=== PATIENT | female | born 1975 | race Caucasian/White ===

== ENCOUNTER → 2017-11-14 11:17 | Outpatient (CLI) | payer OTHER, SELFPAY ==
[2017-11-14 11:24] LABS: Bacteria Urine None Seen; WBC Urine None Seen (0-5/HPF)
[2017-11-14 11:57] LABS: Hematocrit 44.7 % (36-46); Hemoglobin 15.2 g/dL (12.0-16.0); Mean Corpuscular Hemoglobin 31.4 PG (26-34); Mean Corpuscular Volume 92.3 fL (80-100); Platelet Count 226 X10^3/uL (150-400); Red Blood Cell Count 4.84 X10^6/uL (4.0-5.2); Red Cell Distribution Width 12.9 % (11.6-14.8); White Blood Cell Count 5.1 X10^3/uL (4.5-11.0)
[2017-11-14 12:03] LABS: Appearance Urine UA CLEAR; Bilirubin Urine UA NEGATIVE (NEGATIVE); Color Urine UA YELLOW; Glucose Urine UA NEGATIVE (Normal); Ketones Urine UA NEGATIVE (NEGATIVE); Leukocyte Esterase Urine UA NEGATIVE (NEGATIVE); Nitrite Urine UA Negative (Negative); Occult Blood Urine UA 3+ (Negative); Protein Urine UA NEGATIVE (Negative); Specific Gravity Urine UA 1.015 (1.000-1.035); Urobilinogen Urine UA 0.2 E.U./dL (0.2)
[2017-11-14 12:06] LABS: Pregnancy Test Urine Negative (Negative)
[2017-11-14 12:23] LABS: Alanine Aminotransferase 29 IU/L (9-52); Albumin 4.4 g/dL (3.5-5.0); Albumin Globulin Ratio 1.4 (1.0-2.8); Alkaline Phosphatase 58 U/L (38-126); Aspartate Aminotransferase 24 IU/L (14-36); BUN Creatinine Ratio 17.5 (6-22); Bilirubin Total 0.7 mg/dL (0.2-1.3); Blood Urea Nitrogen 14 mg/dL (7-17); Calcium 9.7 mg/dL (8.4-10.2); Carbon Dioxide 24 mmol/L (22-32); Chloride 103 mmol/L (98-107); Cholesterol 233 mg/dL (140-199); Estimated Glomerular Filt Rate > 60.0 mL/min (>60); Globulin 3.1 g/dL (1.7-4.1); Glucose 94 mg/dL (70-100); HDL Cholesterol 58 mg/dL (40-60); HEMOLYSIS < 15 (0-50); LDL Cholesterol Calculated 137 mg/dL (<100); Potassium 5.2 mmol/L (3.4-5.1); Sodium 138 mmol/L (137-145); Total Protein 7.5 g/dL (6.3-8.2); Triglycerides 190 mg/dL (35-150)
[2017-11-14 12:25] LABS: Culture Indicated Urine Cult Not Indicated; RBC Urine 1-5/HPF (0-5/HPF)
[2017-11-14 12:41] LABS: Hemoglobin A1C% w Est Avg Glu 5.2 % (4.0-6.0)
[2017-11-14 12:54] LABS: TSH w/ Reflex to FT4 3.17 uIU/mL (0.47-4.68)
[2017-11-14 14:16] LABS: Neutrophils Absolute Manual 2550 /uL (3000-5900); Total Cells Counted 100
== END ==
PROVIDERS: Family Provider Family Medicine; PCP Family Medicine; Visit Provider Nurse Practitioner Family
DX: Z01.419 Encounter for gynecological examination (general) (routine) without abnormal findings (principal)
CPT/HCPCS: 36415; 80053; 80061; 81001; 81025; 83036; 84443; 85025

== ENCOUNTER → 2018-02-24 08:12 | Outpatient (CLI) | payer OTHER, SELFPAY ==
[2018-02-24 09:58] LABS: Cholesterol 188 mg/dL (140-199); HDL Cholesterol 45 mg/dL (40-60); LDL Cholesterol Calculated 101 mg/dL (<100); Triglycerides 210 mg/dL (35-150)
== END ==
PROVIDERS: PCP Registered Nurse; Visit Provider Registered Nurse
DX: E78.2 Mixed hyperlipidemia (principal)
CPT/HCPCS: 36415; 80061

== ENCOUNTER → 2020-02-28 08:25 | Outpatient (CLI) | payer OTHER, SELFPAY ==
[2020-02-28 09:50] LABS: Add Manual Diff / Slide Review NO; Basophils Absolute Auto 0 /uL (0-100); Basophils Percent Auto 0.9 % (0-2); Eosinophils Absolute Auto 200 /uL (0-450); Eosinophils Percent Auto 3.5 % (2-4); Hematocrit 42.2 % (36-46); Hemoglobin 14.1 g/dL (12.0-16.0); Lymphocytes Absolute Auto 2000 /uL (1100-4500); Lymphocytes Percent Auto 44.6 % (25-40); Mean Corpuscular HGB Conc 33.5 % (30-36); Mean Corpuscular Volume 92.6 fL (80-100); Monocytes Absolute Auto 300 /uL (0-900); Monocytes Percent Auto 6.1 % (3-14); Neutrophils Absolute Auto 2100 /uL (1500-7000); Neutrophils Percent Auto 44.9 % (50-75); Platelet Count 199 X10^3/uL (150-400); Red Blood Cell Count 4.56 X10^6/uL (4.0-5.2); Red Cell Distribution Width 13.9 % (11.6-14.8); White Blood Cell Count 4.6 X10^3/uL (4.5-11.0)
[2020-02-28 10:34] LABS: Alanine Aminotransferase 18 IU/L (<35); Albumin 3.9 g/dL (3.5-5.0); Albumin Globulin Ratio 1.3 (1.0-2.8); Alkaline Phosphatase 51 U/L (38-126); Aspartate Aminotransferase 24 IU/L (14-36); BUN Creatinine Ratio 12.2 (6-22); Bilirubin Total 0.5 mg/dL (0.2-1.3); Blood Urea Nitrogen 10 mg/dL (7-17); Carbon Dioxide 26 mmol/L (22-32); Chloride 105 mmol/L (98-107); Cholesterol 189 mg/dL (140-199); Estimated Glomerular Filt Rate > 60.0 mL/min (>60); Glucose 85 mg/dL (70-100); HDL Cholesterol 60 mg/dL (40-60); HEMOLYSIS < 15 (0-50); LDL Cholesterol Calculated 109 mg/dL (<100); Potassium 4.6 mmol/L (3.4-5.1); Sodium 135 mmol/L (137-145); Total Protein 6.9 g/dL (6.3-8.2); Triglycerides 102 mg/dL (35-150)
[2020-02-28 10:35] LABS: Appearance Urine UA CLEAR; Bilirubin Urine UA NEGATIVE (NEGATIVE); Color Urine UA YELLOW; Glucose Urine UA NEGATIVE (Negative); Ketones Urine UA NEGATIVE (NEGATIVE); Leukocyte Esterase Urine UA NEGATIVE (NEGATIVE); Nitrite Urine UA NEGATIVE (Negative); Occult Blood Urine UA NEGATIVE (Negative); Protein Urine UA NEGATIVE (Negative); Urobilinogen Urine UA 0.2 E.U./dL (0.2)
== END ==
PROVIDERS: Family Provider Family Medicine; PCP Registered Nurse; Referring Provider Registered Nurse; Visit Provider Registered Nurse
DX: Z00.00 Encounter for general adult medical examination without abnormal findings (principal); E78.5 Hyperlipidemia, unspecified; Z30.40 Encounter for surveillance of contraceptives, unspecified
CPT/HCPCS: 36415; 80053; 80061; 81003; 85025

== ENCOUNTER → 2020-07-06 11:58 | Outpatient (CLI) | payer OTHER, SELFPAY ==
--- NOTE | 2020-07-06 12:00 | DI.RAD.S_ITS ---
PROCEDURE: XR SHOULDER RT MIN 2V INDICATIONS: neck injury, neck pain TECHNIQUE: 3 views of the shoulder were acquired. COMPARISON: None. FINDINGS: Bones: No acute fractures or dislocations. No suspicious bony lesions. Visualized ribs appear intact. Mild degenerative changes of the acromioclavicular joint. Coracoclavicular and acromioclavicular intervals are maintained. Soft tissues: No suspicious soft tissue calcifications. IMPRESSION: Right shoulder without acute fracture or dislocation. Mild acromioclavicular osteoarthrosis. Dictated by: Thanh Alford M.D. on 07/06/2020 at 14:30 Approved by: Thanh Alford M.D. on 07/06/2020 at 14:31
--- NOTE | 2020-07-06 12:00 | DI.RAD.S_ITS ---
PROCEDURE: XR CERVICAL SPINE 2V OR 3V INDICATIONS: neck injury, neck pain TECHNIQUE: 3 view(s) of the cervical spine were acquired. COMPARISON: None. FINDINGS: Bones: No fractures or dislocations to the T3 level. The lateral masses of C1 appear intact on the odontoid view. No suspicious bony lesions. Straightening of cervical lordosis which may be due to patient positioning and/or concurrent muscle spasms. There are degenerative endplate changes and endplate osteophyte formation seen from C4-5 through C7-T1. No significant disc space loss. Soft tissues: No prevertebral soft tissue swelling. IMPRESSION: Cervical spine without acute fracture or dislocation. Multilevel cervical spondylosis most pronounced from C4-5 through C7-T1. Straightening of cervical lordosis likely related to positioning and/or concurrent muscle spasm. Dictated by: Thanh Alford M.D. on 07/06/2020 at 14:28 Approved by: Thanh Alford M.D. on 07/06/2020 at 14:30
== END ==
PROVIDERS: PCP Registered Nurse; Referring Provider Registered Nurse; Visit Provider Registered Nurse
DX: M54.2 Cervicalgia (principal); S19.9XXA Unspecified injury of neck, initial encounter; M47.812 Spondylosis without myelopathy or radiculopathy, cervical region; M25.511 Pain in right shoulder; M19.011 Primary osteoarthritis, right shoulder; X58.XXXA Exposure to other specified factors, initial encounter
CPT/HCPCS: 72040; 73030

== ENCOUNTER → 2021-06-14 10:59 | Outpatient (CLI) | payer OTHER, SELFPAY ==
[2021-06-14 13:15] LABS: Alanine Aminotransferase 31 IU/L (<35); Albumin 4.3 g/dL (3.5-5.0); Albumin Globulin Ratio 1.6 (1.0-2.8); Alkaline Phosphatase 42 U/L (38-126); Aspartate Aminotransferase 28 IU/L (14-36); BUN Creatinine Ratio 14.1 (6-22); Bilirubin Total 0.5 mg/dL (0.2-1.3); Blood Urea Nitrogen 11 mg/dL (7-17); Calcium 9.3 mg/dL (8.4-10.2); Carbon Dioxide 27 mmol/L (22-32); Chloride 105 mmol/L (98-107); Cholesterol 207 mg/dL (140-199); Estimated Glomerular Filt Rate > 60.0 mL/min (>60); Globulin 2.7 g/dL (1.7-4.1); Glucose 89 mg/dL (70-100); HDL Cholesterol 51 mg/dL (40-60); HEMOLYSIS < 15 (0-50); LDL Cholesterol Calculated 126 mg/dL (<100); Potassium 4.1 mmol/L (3.4-5.1); Sodium 138 mmol/L (137-145); Triglycerides 150 mg/dL (35-150)
== END ==
PROVIDERS: PCP Registered Nurse; Referring Provider Registered Nurse; Visit Provider Registered Nurse
DX: E78.5 Hyperlipidemia, unspecified (principal); Z00.00 Encounter for general adult medical examination without abnormal findings
CPT/HCPCS: 36415; 80053; 80061

== ENCOUNTER → 2022-02-14 08:03 | Outpatient (CLI) | payer OTHER, SELFPAY ==
[2022-02-14 08:50] LABS: Hematocrit 41.7 % (36-46); Hemoglobin 14.1 g/dL (12.0-16.0); Mean Corpuscular HGB Conc 33.8 % (30-36); Mean Corpuscular Hemoglobin 30.4 PG (26-34); Mean Corpuscular Volume 89.7 fL (80-100); Platelet Count 231 X10^3/uL (150-400); Red Blood Cell Count 4.65 X10^6/uL (4.0-5.2); Red Cell Distribution Width 13.2 % (11.6-14.8); White Blood Cell Count 5.1 X10^3/uL (4.5-11.0)
[2022-02-14 09:10] LABS: Alanine Aminotransferase 22 IU/L (<35); Albumin 3.7 g/dL (3.5-5.0); Albumin Globulin Ratio 1.3 (1.0-2.8); Alkaline Phosphatase 65 U/L (38-126); Aspartate Aminotransferase 24 IU/L (14-36); BUN Creatinine Ratio 15.5 (6-22); Bilirubin Total 0.4 mg/dL (0.2-1.3); Blood Urea Nitrogen 13 mg/dL (7-17); Calcium 8.4 mg/dL (8.4-10.2); Carbon Dioxide 25 mmol/L (22-32); Chloride 104 mmol/L (98-107); Cholesterol 182 mg/dL (140-199); Estimated Glomerular Filt Rate > 60 mL/min (>60); Globulin 2.9 g/dL (1.7-4.1); Glucose 93 mg/dL (70-100); HDL Cholesterol 47 mg/dL (40-60); HEMOLYSIS < 15 (0-50); LDL Cholesterol Calculated 106 mg/dL (<100); Potassium 4.5 mmol/L (3.4-5.1); Sodium 137 mmol/L (137-145); Total Protein 6.6 g/dL (6.3-8.2); Triglycerides 147 mg/dL (35-150)
[2022-02-14 09:28] LABS: Free T4, Direct Thyroxine 1.04 ng/dL (0.78-2.19)
[2022-02-14 09:41] LABS: Thyroid Stimulating Hormone 2.52 uIU/mL (0.47-4.68)
[2022-02-14 10:50] LABS: Creatinine Urine Random 99.6 mg/dL
[2022-02-14 11:00] LABS: Microalbumin Urine Random < 0.6 mg/dL (0-1.6)
== END ==
PROVIDERS: PCP Nurse Practitioner; Referring Provider Nurse Practitioner; Visit Provider Nurse Practitioner
DX: Z00.00 Encounter for general adult medical examination without abnormal findings (principal)
CPT/HCPCS: 36415; 80053; 80061; 82043; 82570; 84439; 84443; 84481; 85027

== ENCOUNTER → 2023-02-04 08:08 | Outpatient (CLI) | payer OTHER, SELFPAY ==
--- NOTE | 2023-02-04 08:09 | DI.MG.S_ITS ---
BILATERAL DIGITAL SCREENING MAMMOGRAM 3D/2D WITH CAD: 02/04/2023 CLINICAL: Routine screening. Comparison is made to exams dated: 11/18/2017 mammogram - [facility] and 07/13/2013 mammogram - [facility]. There are scattered areas of fibroglandular density in both breasts (category b / 25%-50% glandular tissue). Current study was also evaluated with a Computer Aided Detection (CAD) system. No significant masses, calcifications, or other findings are seen in either breast. There has been no significant interval change. IMPRESSION: NEGATIVE There is no mammographic evidence of malignancy. A 1 year screening mammogram is recommended. Based on the Tyrer Cuzick model (a risk assessment model) the patient's lifetime risk is 6.4% and her 10 year risk is 1.3%. According to the ACR, ACS, and NCCN guidelines, an annual breast MRI exam along with mammogram is recommended if the patient's lifetime risk is 20% or greater. This exam was interpreted at Station ID: [id number]. NOTE: For mammograms, a report in lay terms will be sent to the patient. Approximately 15% of breast malignancies will not be visualized mammographically. In the management of a palpable breast mass, a negative mammogram must not discourage biopsy of a clinically suspicious lesion. Electronically Signed By: Raoul louie/emily:02/04/2023 12:40:04 letter sent: Normal Exam ACR BI-RADS Category 1: Negative [id number]
== END ==
PROVIDERS: PCP Nurse Practitioner; Referring Provider Nurse Practitioner; Visit Provider Nurse Practitioner
DX: Z12.31 Encounter for screening mammogram for malignant neoplasm of breast (principal)
CPT/HCPCS: 77063; 77067

== ENCOUNTER → 2023-02-11 07:42 | Outpatient (CLI) | payer OTHER, SELFPAY ==
[2023-02-11 08:21] LABS: Add Manual Diff / Slide Review NO; Basophils Absolute Auto 100 /uL (0-100); Basophils Percent Auto 1.2 % (0-2); Eosinophils Absolute Auto 200 /uL (0-450); Eosinophils Percent Auto 3.3 % (2-4); Hematocrit 41.6 % (36-46); Lymphocytes Absolute Auto 2000 /uL (1100-4500); Lymphocytes Percent Auto 38.8 % (25-40); Mean Corpuscular HGB Conc 33.6 % (30-36); Mean Corpuscular Hemoglobin 29.2 PG (26-34); Mean Corpuscular Volume 86.9 fL (80-100); Monocytes Absolute Auto 300 /uL (0-900); Monocytes Percent Auto 6.6 % (3-14); Neutrophils Absolute Auto 2600 /uL (1500-7000); Neutrophils Percent Auto 50.1 % (50-75); Platelet Count 233 X10^3/uL (150-400); Red Blood Cell Count 4.79 X10^6/uL (4.0-5.2); Red Cell Distribution Width 14.1 % (11.6-14.8); White Blood Cell Count 5.2 X10^3/uL (4.5-11.0)
[2023-02-11 08:52] LABS: Alanine Aminotransferase 35 IU/L (<35); Albumin 3.9 g/dL (3.5-5.0); Albumin Globulin Ratio 1.3 (1.0-2.8); Alkaline Phosphatase 54 U/L (38-126); Aspartate Aminotransferase 26 IU/L (14-36); BUN Creatinine Ratio 10.9 (6-22); Bilirubin Total 0.4 mg/dL (0.2-1.3); Blood Urea Nitrogen 11 mg/dL (7-17); Calcium 9.6 mg/dL (8.4-10.2); Carbon Dioxide 25 mmol/L (22-32); Chloride 101 mmol/L (98-107); Cholesterol 196 mg/dL (140-199); Estimated Glomerular Filt Rate > 60 mL/min (>60); Glucose 113 mg/dL (70-100); HDL Cholesterol 39 mg/dL (40-60); HEMOLYSIS < 15 (0-50); LDL Cholesterol Calculated 129 mg/dL (<100); Potassium 4.4 mmol/L (3.4-5.1); Sodium 136 mmol/L (137-145); Total Protein 6.9 g/dL (6.3-8.2); Triglycerides 139 mg/dL (35-150)
[2023-02-11 09:18] LABS: TSH w/ Reflex to FT4 2.02 uIU/mL (0.47-4.68)
[2023-02-11 09:37] LABS: HIV 1 & 2 Ab/Ag 4th Gen Combo NEGATIVE (NEGATIVE); Hep C Virus Ab w/Reflex Quant NEGATIVE s/c (NEGATIVE)
== END ==
PROVIDERS: PCP Nurse Practitioner; Referring Provider Nurse Practitioner; Visit Provider Nurse Practitioner
DX: E78.5 Hyperlipidemia, unspecified (principal); Z11.3 Encounter for screening for infections with a predominantly sexual mode of transmission; Z00.00 Encounter for general adult medical examination without abnormal findings; Z13.29 Encounter for screening for other suspected endocrine disorder
CPT/HCPCS: 36415; 80053; 80061; 84443; 85025; 86803; 87389

== ENCOUNTER 2023-06-17 13:40 | Day surgery (SDC) | payer OTHER, SELFPAY ==
[2023-06-17 13:58] VITALS: BP 143/103; PULSE 83; RESP 16; TEMP 36.3; O2SAT 99
--- NOTE | 2023-06-17 14:08 | PM.HP.1 ---
History of Present Illness History of Present Illness Date Patient Seen: 06/17/23 Time Patient Seen: 14:08 [place] [facility] [place] 48-year-old woman here for 1st time screening colonoscopy. No family history of intestinal malignancy. No abdominal concerns today. [facility] Medical History (Updated 02/12/23 @ 06:51 by Lorraine Ibarra DO) Osteoarthritis cervical spine Ovarian cyst (1989) Shoulder pain (2011) Chlamydia (1992) Menorrhagia Hiatal hernia Hayfever (2011) GERD (gastroesophageal reflux disease) (2005) Abnormal Pap smear of cervix (2010) Chicken pox (1980) CTS (carpal tunnel syndrome) (1997) Chronic nausea Vaginal delivery Vaginal delivery Surgical History Anesthesia Status post loop electrosurgical excision procedure (LEEP) of cervix (2008) Status post cholecystectomy (2007) Status post dilation and curettage (1995) History of third molar tooth extraction (1993) History of tonsillectomy (1989) Family History Grandfather Heart disease Heart attack Grandmother Age: 102 Polycystic kidney Liver disease Mother Age: 69 Polycystic kidney Polycystic liver disease Grandfather Mental health problem Cancer Brother Stroke MRSA infection Father Thyroid cancer Grandmother No problems noted. Social History Smoking Status: Former smoker Meds Home Medications and Allergies Home Medications Medication Instructions Recorded Confirmed Type hydroxyzine HCl 10 mg tablet 10 mg PO BEDTIME PRN insomnia #30 06/18/21 02/12/23 Rx tabs Probiotic See Rx Instructions .Route 02/04/22 02/12/23 Rx .COMPLEX #100 caps coenzyme Q10 100 mg capsule (Co 100 mg PO DAILY 02/04/22 02/12/23 History Q-10) folate See Rx Instructions .Route .COMPLEX 02/04/22 02/12/23 History magnesium oxide,aspartate,citr mg PO 02/04/22 02/12/23 History mecobalamin (vitamin B12) 1,000 1,000 mcg PO DAILY 02/04/22 02/12/23 History mcg chewable tablet (B12 Active) sodium,potassium,mag sulfates 17.5 See Rx Instructions PO .COMPLEX 01/07/23 02/12/23 Rx gram-3.13 gram-1.6 gram oral soln #354 mL (Suprep Bowel Prep Kit) norethindrone acetate 1 mg-ethinyl See Rx Instructions .Route 02/12/23 02/12/23 Rx estradiol 20 mcg tablet .COMPLEX #126 tabs propranolol 10 mg tablet 10 mg PO BID 02/12/23 06/17/23 History protriptyline 10 mg tablet 30 mg PO BEDTIME 02/12/23 02/12/23 History ubrogepant 50 mg tablet 50 mg PO ONCE 02/12/23 02/12/23 History verapamil 120 mg tablet 120 mg PO DAILY 02/12/23 02/12/23 History Allergies Allergy/AdvReac Type Severity Reaction Status Date / Time No Known Drug Allergies Allergy Verified 06/17/23 13:55 Exam Vital Signs (past 8 hours): - 06/17/23 13:58 Temperature 97.3 F L Pulse Rate 83 Respiratory Rate 16 Blood Pressure 143/103 H Pulse Oximetry 99 Oxygen Delivery Method Room Air Oxygen Delivery Method Room Air Narrative Exam Narrative: General adult woman alert oriented no acute distress Chest nonlabored respiration Extremities warm well perfused Assessment & Plan Assessment & Plan narrative: The patient requires colorectal screening and colonoscopy is recommended. Technical details were discussed. Risks, benefits, alternatives explained. Risks including but not limited to myocardial infarction, aspiration, bleeding, pain, missed lesion, incomplete examination, need for further radiographic studies, colonic perforation, and need for major abdominal surgery were discussed. All questions were answered to their satisfaction, and they are in agreement with this plan.
[2023-06-17] MEDS: LACTATED RINGERS 1,000 ML 42 ML IV (14:10)
--- NOTE | 2023-06-17 14:17 | P.OP.COLON_ITS ---
Operative Date/Time/Diagnoses Date of procedure: 06/17/23 Time of procedure: 14:17 Pre-op diagnosis: Colorectal screening Procedure & Clinicians Study performed: Colonoscopy Same procedure as scheduled: Yes Indications: Colorectal screening Surgeon: Spencer Pozo Procedure Notes Procedure in detail: The history and physical was performed/updated and the patient is ASA class is 2. The procedure was discussed in detail with the patient. Potential risks complications including infection, bleeding, missed diagnosis, perforation, need for surgery, and were explained. Their questions were answered and informed consent was obtained. Patient was brought to the procedure room and placed standard monitoring equipment. The patient's vital signs were monitored continuously throughout the entire procedure. Prior to starting time-out was performed. The patient was placed in the left lateral recumbent position. Procedural sedation was administered by anesthesia. Examination began with a thorough inspection of the perianal area there was no evidence of fissures, fistulae, external hemorrhoids or cutaneous malignancy. The colonoscopy scope was then placed into the anal canal and was advanced to the cecum, which was identified by the ileocecal valve , the appendiceal orifice and the confluence of the taenia. The scope was then slowly withdrawn examining colon thoroughly in all directions, irrigating it of any residual stool. The scope was retroflexed within the rectum The patient tolerated the procedure well. They will be discharged once criteria are met. The prep was of good/excellent quality. The withdrawl time was 6 minutes. FINDINGS * Normal colonoscopy. Normal healthy colonic mucosa without polyps, masses or inflammation. Specimen(s): none sent Impression: Normal colonoscopy Post-procedure Recommendations: Colonoscopy in 10 years Disposition: same day surgery
[2023-06-17 14:36] VITALS: BP 138/96; PULSE 100; RESP 23; TEMP 36.1; O2SAT 99
[2023-06-17 14:41] VITALS: BP 123/94; PULSE 89; RESP 16; O2SAT 99
[2023-06-17 14:46] VITALS: BP 137/92; PULSE 91; RESP 22; O2SAT 99
== END 2023-06-17 14:56 | disposition home or self-care (01) ==
PROVIDERS: PCP Nurse Practitioner; Referring Provider Surgery; Visit Provider Surgery
PROC: 0DJD8ZZ Inspection of Lower Intestinal Tract, Via Natural or Artificial Opening Endoscopic (ICD-10-PCS; CPT 45378; principal; 2023-06-17 14:30)
DX: Z12.11 Encounter for screening for malignant neoplasm of colon (principal)
CPT/HCPCS: 45378; J2704

== ENCOUNTER → 2024-02-25 07:58 | Outpatient (CLI) | payer OTHER, SELFPAY ==
--- NOTE | 2024-02-25 07:59 | DI.MG.S_ITS ---
BILATERAL DIGITAL SCREENING MAMMOGRAM 3D/2D WITH CAD: 02/25/2024 CLINICAL: Routine screening. Comparison is made to exams dated: 02/04/2023 mammogram - [facility] and 11/18/2017 mammogram - [facility]. There are scattered areas of fibroglandular density (category b / 25%-50% glandular tissue). Current study was also evaluated with a Computer Aided Detection (CAD) system. No significant masses, calcifications, or other findings are seen in either breast. There has been no significant interval change. IMPRESSION: NEGATIVE There is no mammographic evidence of malignancy. A 1 year screening mammogram is recommended. Based on the Tyrer Cuzick model (a risk assessment model) the patient's lifetime risk is 6.4% and her 10 year risk is 1.5%. According to the ACR, ACS, and NCCN guidelines, an annual breast MRI exam along with mammogram is recommended if the patient's lifetime risk is 20% or greater. This exam was interpreted at Station ID: [id number]. NOTE: For mammograms, a report in lay terms will be sent to the patient. Approximately 15% of breast malignancies will not be visualized mammographically. In the management of a palpable breast mass, a negative mammogram must not discourage biopsy of a clinically suspicious lesion. Electronically Signed By: Magdalena johnson/emily:02/25/2024 17:17:49 letter sent: Normal Exam ACR BI-RADS Category 1: Negative
== END ==
PROVIDERS: PCP Family Medicine; Referring Provider Family Medicine; Visit Provider Family Medicine
DX: Z12.31 Encounter for screening mammogram for malignant neoplasm of breast (principal)
CPT/HCPCS: 77063; 77067

== ENCOUNTER 2024-04-30 17:44 | Inpatient (IN) | payer OTHER, SELFPAY ==
[2024-04-30] VITALS (7 sets, daily range): BP systolic 113–137; BP diastolic 75–89; PULSE 109–127; RESP 14–18; TEMP 37.4; O2SAT 97–100; BMI 33.6
--- NOTE | 2024-04-30 18:11 | DI.CT.S_ITS ---
PROCEDURE: CT ABDOMEN AND PELVIS WO CON INDICATIONS: rlq pain x 24 hours TECHNIQUE: After the administration of oral contrast, 5 mm thick sections acquired from the diaphragms to the ischial tuberosities. 5 mm coronal and sagittal reformats were then performed. For radiation dose reduction, the following was used: automated exposure control, adjustment of mA and/or kV according to patient size. COMPARISON: None. FINDINGS: Image quality: Diagnostic. Lower Chest: Right lower lobe nodular opacity measuring 0.6 cm, (3/14). ABDOMEN: Liver: No contour-deforming mass. Small cyst in the anterior liver. Gallbladder: Absent. Clip adjacent to the inferior liver. Biliary ducts: No biliary dilation. Pancreas: No peripancreatic fluid collection. Spleen: Size is within normal limits. Adrenal Glands: No adrenal nodules. Kidneys and Ureters: No hydronephrosis. Punctate nonobstructing left kidney stone. No contour-deforming mass. Stomach and Bowel: The appendix is dilated up to 1.1 cm. There is periappendiceal fat stranding. There is high-density material within the appendix which most likely represents appendicoliths. No fluid collection. No free air. No convincing diverticulitis. No small bowel obstruction. The stomach is not distended. Small hiatal hernia. Peritoneum: No ascites. No pneumoperitoneum. Ventral Wall: No hernia. Abdominal Nodes: No retroperitoneal or mesenteric adenopathy by size criteria. Vessels: Aorta and inferior vena cava are normal in size. Pelvis: Anteverted uterus. Trace free fluid in the pelvis. Bladder: No thickening. No stone. No inguinal hernia. Bones: No aggressive osseous abnormality. IMPRESSION: 1. Acute appendicitis. No rupture demonstrated. 2. No hydronephrosis. Punctate nonobstructing left kidney stone. 3. Post cholecystectomy. Dictated by: Raoul Osborne M.D. on 04/30/2024 at 21:03 Approved by: Raoul Osborne M.D. on 04/30/2024 at 21:13
[2024-04-30] MEDS: ONDANSETRON 4 MG/2 ML INJ IV ×2 (18:25→21:56)
[2024-04-30] MEDS: KETOROLAC 30 MG/ML VIAL 15 MG IV (18:25)
[2024-04-30 18:32] LABS: Add Manual Diff / Slide Review NO; Basophils Absolute Auto 100 /uL (0-100); Basophils Percent Auto 0.4 % (0-2); Eosinophils Absolute Auto 0 /uL (0-450); Eosinophils Percent Auto 0.2 % (2-4); Hematocrit 44.1 % (36-46); Hemoglobin 14.6 g/dL (12.0-16.0); Lymphocytes Absolute Auto 2100 /uL (1100-4500); Lymphocytes Percent Auto 12.5 % (25-40); Mean Corpuscular HGB Conc 33.1 % (30-36); Mean Corpuscular Hemoglobin 28.7 PG (26-34); Mean Corpuscular Volume 86.6 fL (80-100); Monocytes Absolute Auto 900 /uL (0-900); Monocytes Percent Auto 5.4 % (3-14); Neutrophils Absolute Auto 13800 /uL (1500-7000); Neutrophils Percent Auto 81.5 % (50-75); Platelet Count 316 X10^3/uL (150-400); Red Cell Distribution Width 13.4 % (11.6-14.8); White Blood Cell Count 16.9 X10^3/uL (4.5-11.0)
[2024-04-30 18:40] LABS: Alanine Aminotransferase 25 IU/L (<35); Albumin 4.4 g/dL (3.5-5.0); Albumin Globulin Ratio 1.3 (1.0-2.8); Alkaline Phosphatase 79 U/L (38-126); Aspartate Aminotransferase 25 IU/L (14-36); BUN Creatinine Ratio 12.6 (6-22); Bilirubin Total 0.8 mg/dL (0.2-1.3); Blood Urea Nitrogen 11 mg/dL (7-17); Calcium 9.4 mg/dL (8.4-10.2); Carbon Dioxide 22 mmol/L (22-32); Chloride 101 mmol/L (98-107); Estimated Glomerular Filt Rate > 60 mL/min (>60); Globulin 3.4 g/dL (1.7-4.1); Glucose 122 mg/dL (70-100); HEMOLYSIS < 15 (0-50); Lipase 33 U/L (23-300); Potassium 3.5 mmol/L (3.4-5.1); Sodium 134 mmol/L (137-145); Total Protein 7.8 g/dL (6.3-8.2)
[2024-04-30] MEDS: PIPERACILLIN/TAZO 4.5 GM in SODIUM CHLORIDE 0.9% 100 ML IV (21:46)
--- NOTE | 2024-04-30 22:30 | ED_ITS ---
HPI - Abdominal Pain General Chief Complaint: Abdominal Pain Stated Complaint: [facility] by [facility], rt lower quad abd px Time Seen by Provider: 04/30/24 21:38 Source: patient and family Mode of arrival: Wheelchair History of Present Illness HPI narrative: 49-year-old female with history of remote cholecystectomy, complains of central abdominal discomfort yesterday evening , progress through the day and seem more lower and then right-sided through today, anorexia, last meal yesterday, nausea but no emesis, last bowel movement yesterday, no black or red stools, no loose stools. She has not feeling feverish. She has not having any urinary frequency or urgency. No flank pain. No chest pain or shortness of breath, no recent cough. She does not take blood thinner medications. No injury trauma or new activities. History of migraine headaches for which she takes multiple medications, seems to be fairly well controlled known, no current headache. Related Data Home Medications Medication Instructions Recorded Confirmed protriptyline 10 mg tablet 30 mg PO BEDTIME 02/12/23 05/01/24 verapamil 120 mg tablet 120 mg PO DAILY 02/12/23 05/01/24 propranolol 10 mg tablet 10 mg PO BID 05/01/24 05/01/24 terbinafine HCl 250 mg tablet 250 mg PO DAILY 05/01/24 05/01/24 Allergies Allergy/AdvReac Type Severity Reaction Status Date / Time No Known Drug Allergies Allergy Verified 01/23/24 10:44 Patient History Medical History (Updated 05/01/24 @ 00:05 by Antoinette Gordon MD) Osteoarthritis cervical spine Ovarian cyst (1989) Shoulder pain (2011) Chlamydia (1992) Menorrhagia Hiatal hernia Hayfever (2011) GERD (gastroesophageal reflux disease) (2005) Abnormal Pap smear of cervix (2010) Chicken pox (1980) CTS (carpal tunnel syndrome) (1997) Chronic nausea Vaginal delivery Vaginal delivery Surgical History Anesthesia Status post loop electrosurgical excision procedure (LEEP) of cervix (2008) Status post cholecystectomy (2007) Status post dilation and curettage (1995) History of third molar tooth extraction (1993) History of tonsillectomy (1989) Family History Grandfather Heart disease Heart attack Grandmother Age: 103 Polycystic kidney Liver disease Mother Age: 70 Polycystic kidney Polycystic liver disease Grandfather Mental health problem Cancer Brother Stroke MRSA infection Father Thyroid cancer Grandmother No problems noted. Social History household members: spouse Smoking Status: Former smoker Smoking Status: Former smoker alcohol intake frequency: a few times a month Exam Narrative Exam Narrative: GENERAL: Well-developed patient, in mild distress. HEAD: Atraumatic. Normocephalic. EYES: Pupils equal round and reactive. Extraocular motions intact. No scleral icterus. No injection or drainage. ENT: Nose without bleeding, purulent drainage. Throat without erythema, tonsillar hypertrophy or exudate. Airway patent. NECK: Trachea midline. Non tender CARDIOVASCULAR: Regular rate and rhythm without murmurs, gallops, or rubs. RESPIRATORY: Clear to auscultation. Breath sounds equal bilaterally. No wheezes, rales, or rhonchi. GASTROINTESTINAL: Abdomen with tenderness right lower quadrant, no guarding or rebound, nondistended EXTREMITIES: No edema or joint tenderness. BACK: Nontender without deformity or crepitance. No flank tenderness. NEURO: AOx3. Motor functions grossly nonfocal SKIN: No rash or erythema of visible areas Initial Vital Signs Initial Vital Signs: Vital Signs Temperature 99.3 F 04/30/24 17:59 Pulse Rate 125 H 04/30/24 17:59 Respiratory Rate 16 04/30/24 17:59 Pulse Oximetry 99 04/30/24 17:59 Oxygen Delivery Method Room Air 04/30/24 17:59 Course Orders Ordered: Acetaminophen (Acetaminophen 325 Mg Tablet) 650 mg PO Q6H PRN PRN Reason: Fever/Mild Pain (1-3) Acetaminophen (Acetaminophen 325 Mg Tablet) 650 mg PO Q6H [facility] Last Admin: 05/01/24 05:32 Dose: 650 mg Documented By: Admin: 05/01/24 02:31 Dose: Not Given Documented By: AM Hydrocodone Bitart/Acetaminophen (Hydrocodone/Acet 5/325 Tablet) 2 tab PO Q4H PRN PRN Reason: Pain, Severe (7-10) Diphenhydramine HCl (Diphenhydramine 50 Mg/Ml Vial) 25 mg IV Q6HR PRN PRN Reason: Itching Docusate Sodium (Docusate 100 Mg Capsule) 100 mg PO BID PRN PRN Reason: Constipation Enoxaparin Sodium (Enoxaparin 40 Mg/0.4 Ml Syringe) 40 mg SUBCUT DAILY [facility] Hydromorphone HCl (Hydromorphone 0.5 Mg Inj) 1 mg IV Q1H PRN PRN Reason: Pain, Severe (7-10) Hydromorphone HCl (Hydromorphone 1 Mg Inj) 0 mg IV Q5MIN PRN PRN Reason: Pain, Mild (1-3) Hydromorphone HCl (Hydromorphone 1 Mg Inj) 0 mg IV Q5MIN PRN PRN Reason: Pain, Moderate (4-6) Sodium Chloride (Normal Saline 0.9%) 1,000 mls @ 100 mls/hr IV CONT [facility] Last Admin: 05/01/24 02:35 Dose: 100 mls/hr Documented By: AM Piperacillin Sod/Tazobactam (Sod 3.375 gm/ Sodium Chloride) 100 mls @ 25 mls/hr IV Q8H [facility] Last Admin: 05/01/24 05:32 Dose: 25 mls/hr Documented By: AM Lactated Ringer's (Lactated Ringers) 1,000 mls @ 42 mls/hr IV CONT [facility] Last Admin: 05/01/24 00:35 Dose: 42 mls/hr Documented By: CG Lactated Ringer's (Lactated Ringers) 1,000 mls @ 125 mls/hr IV CONT EUNICE Ibuprofen (Ibuprofen 600 Mg Tablet) 600 mg PO Q6H [facility] Last Admin: 05/01/24 05:30 Dose: 600 mg Documented By: Admin: 05/01/24 02:32 Dose: Not Given Documented By: AM Morphine Sulfate (Morphine 4 Mg/Ml Inj) 3 mg IV Q2HR PRN PRN Reason: Pain, Severe (7-10) Naloxone HCl (Naloxone 0.4 Mg/Ml Vial) 0.2 mg IV Q2MIN PRN PRN Reason: Opiate Reversal Naloxone HCl (Naloxone 0.4 Mg/Ml Vial) 0.2 mg IV Q2MIN PRN PRN Reason: Opiate Reversal (Terbinafine Hcl 250 (Mg Tablet)) 250 mg PO DAILY [facility] (Protriptyline 10 Mg (Tablet)) 30 mg PO BEDTIME [facility] Ondansetron HCl (Ondansetron 4 Mg/2 Ml Inj) 4 mg IV NOW PRN PRN Reason: Nausea And Vomiting Last Admin: 04/30/24 21:56 Dose: 4 mg Documented By: Admin: 04/30/24 18:25 Dose: 4 mg Documented By: SERENA Ondansetron HCl (Ondansetron 4 Mg Odt) 4 mg PO NOW PRN PRN Reason: Nausea And Vomiting Ondansetron HCl (Ondansetron 4 Mg/2 Ml Inj) 4 mg IV Q8HR PRN PRN Reason: Nausea And Vomiting Ondansetron HCl (Ondansetron 4 Mg/2 Ml Inj) 4 mg IV Q4HR PRN PRN Reason: Nausea And Vomiting Oxycodone HCl (Oxycodone Ir 5 Mg Tablet) 5 mg PO PACUNOW PRN PRN Reason: Mild or moderate pain Pantoprazole Sodium (Pantoprazole 40 Mg Vial) 20 mg IV DAILY [facility] Sennosides (Sennosides 8.6 Mg Tablet) 17.2 mg PO DAILY [facility] Verapamil HCl (Verapamil 80 Mg Tablet) 40 mg PO TID EUNICE Discontinued Medications Bupivacaine HCl (Bupivacaine 0.5% (Pf) 30 Ml Vial) 30 ml INJ NOW ONE Stop: 05/01/24 01:05 Last Admin: 05/01/24 01:04 Dose: 30 ml Documented By: CORTEZ Hydromorphone HCl (Hydromorphone 0.5 Mg Inj) 0.5 mg IV NOW ONE Stop: 04/30/24 22:36 Last Admin: 04/30/24 22:46 Dose: 0.5 mg Documented By: RONALDO Piperacillin Sod/Tazobactam (Sod 4.5 gm/ Sodium Chloride) 100 mls @ 200 mls/hr IV NOW ONE Stop: 04/30/24 21:39 Last Infusion: 04/30/24 22:26 Dose: Infused Documented By: Admin: 04/30/24 21:46 Dose: 200 mls/hr Documented By: MAURO Lactated Ringer's (Lactated Ringers) 1,000 mls @ 1,000 mls/hr IV BOLUS ONE Stop: 05/01/24 00:03 Last Admin: 04/30/24 23:09 Dose: 1,000 mls/hr Documented By: RONALDO Acetaminophen (Ofirmev) 1,000 mg in 100 mls @ 400 mls/hr IV NOW ONE Stop: 05/01/24 00:45 Last Infusion: 05/01/24 01:00 Dose: Infused Documented By: Admin: 05/01/24 00:42 Dose: 400 mls/hr Documented By: SUSANNAH Ketorolac Tromethamine (Ketorolac 30 Mg/Ml Vial) 15 mg IV NOW ONE Stop: 04/30/24 18:22 Last Admin: 04/30/24 18:25 Dose: 15 mg Documented By: SERENA Lidocaine/Epinephrine (Lidocaine 1% W/Epi 20ml) 20 ml INJ NOW ONE Stop: 05/01/24 01:06 Last Admin: 05/01/24 01:05 Dose: 20 ml Documented By: CORTEZ Vital Signs Vital signs: Vital Signs - 8 hr 04/30/24 17:59 04/30/24 21:08 Temperature 99.3 F Pulse Rate 125 H 119 H Respiratory Rate 16 Blood Pressure 113/82 Pulse Oximetry 99 100 Oxygen Delivery Method Room Air Room Air MDM - Abdominal Pain Lab Data Attestation: I reviewed the patient's lab results. Lab results narrative: White blood cell count 62326, hemoglobin 14.6, platelets adequate. Basic metabolic panel unremarkable. Liver functions and lipase normal. 05/01/24 05:20 05/01/24 05:20 Labs: Lab Results 04/30/24 Range/Units 18:20 WBC 16.9 H (4.5-11.0) X10^3/uL RBC 5.10 (4.0-5.2) X10^6/uL Hgb 14.6 (12.0-16.0) g/dL Hct 44.1 (36-46) % MCV 86.6 (80-100) fL MCH 28.7 (26-34) PG MCHC 33.1 (30-36) % RDW 13.4 (11.6-14.8) % Plt Count 316 (150-400) X10^3/uL Neut % (Auto) 81.5 H (50-75) % Lymph % (Auto) 12.5 L (25-40) % [place] % (Auto) 5.4 (3-14) % Eos % (Auto) 0.2 L (2-4) % Baso % (Auto) 0.4 (0-2) % Neut # (Auto) 39769 H (8746-9729) /uL Lymph # (Auto) 2100 (6420-0487) /uL [place] # (Auto) 900 (0-900) /uL Eos # (Auto) 0 (0-450) /uL Baso # (Auto) 100 (0-100) /uL Sodium 134 L (137-145) mmol/L Potassium 3.5 (3.4-5.1) mmol/L Chloride 101 (98-107) mmol/L Carbon Dioxide 22 (22-32) mmol/L BUN 11 (7-17) mg/dL Creatinine 0.87 (0.52-1.04) mg/dL Estimated GFR > 60 (>60) mL/min BUN/Creatinine Ratio 12.6 (6-22) Glucose 122 H (70-100) mg/dL Calcium 9.4 (8.4-10.2) mg/dL Total Bilirubin 0.8 (0.2-1.3) mg/dL AST 25 (14-36) IU/L ALT 25 (<35) IU/L Alkaline Phosphatase 79 (38-126) U/L Total Protein 7.8 (6.3-8.2) g/dL Albumin 4.4 (3.5-5.0) g/dL Globulin 3.4 (1.7-4.1) g/dL Albumin/Globulin Ratio 1.3 (1.0-2.8) Lipase 33 (23-300) U/L Point of care testing: Urine Dip Bedside Urine Glucose Negative Bedside Urine Bilirubin - Negative Bedside Urine Ketone - Negative Urine Specific [place] 1.010 Bedside Urine Occult Blood - Negative Bedside Urine pH 6.0 Bedside Urine Protein - Negative Bedside Urine Urobilinogen - Negative Bedside Urine Nitrite - Negative Bedside Urine Leukocytes - Negative Esterase Imaging Data CT scan - abdomen/pelvis: Radiologist's Impression: [place] [address] CT Scan Report Signed Patient: Ashli Woody MR#: [id number] : 1975 Acct:[id number] Age/Sex: 49 / F Date of Service: 04/30/24 Loc: ED Accession Number: [id number] Procedure: CT abdomen wo con Ordering Provider: Lyle Lance MD PROCEDURE: CT ABDOMEN AND PELVIS WO CON INDICATIONS: rlq pain x 24 hours TECHNIQUE: After the administration of oral contrast, 5 mm thick sections acquired from the diaphragms to the ischial tuberosities. 5 mm coronal and sagittal reformats were then performed. For radiation dose reduction, the following was used: automated exposure control, adjustment of mA and/or kV according to patient size. COMPARISON: None. FINDINGS: Image quality: Diagnostic. Lower Chest: Right lower lobe nodular opacity measuring 0.6 cm, (3/14). ABDOMEN: Liver: No contour-deforming mass. Small cyst in the anterior liver. Gallbladder: Absent. Clip adjacent to the inferior liver. Biliary ducts: No biliary dilation. Pancreas: No peripancreatic fluid collection. Spleen: Size is within normal limits. Adrenal Glands: No adrenal nodules. Kidneys and Ureters: No hydronephrosis. Punctate nonobstructing left kidney stone. No contour-deforming mass. Stomach and Bowel: The appendix is dilated up to 1.1 cm. There is periappendiceal fat stranding. There is high-density material within the appendix which most likely represents appendicoliths. No fluid collection. No free air. No convincing diverticulitis. No small bowel obstruction. The stomach is not distended. Small hiatal hernia. Peritoneum: No ascites. No pneumoperitoneum. Ventral Wall: No hernia. Abdominal Nodes: No retroperitoneal or mesenteric adenopathy by size criteria. Vessels: Aorta and inferior vena cava are normal in size. Pelvis: Anteverted uterus. Trace free fluid in the pelvis. Bladder: No thickening. No stone. No inguinal hernia. Bones: No aggressive osseous abnormality. IMPRESSION: 1. Acute appendicitis. No rupture demonstrated. 2. No hydronephrosis. Punctate nonobstructing left kidney stone. 3. Post cholecystectomy. Dictated by: Raoul Osborne M.D. on 04/30/2024 at 21:03 Approved by: Raoul Osborne M.D. on 04/30/2024 at 21:13 [facility] Narrative Medical decision making narrative: 49-year-old female status post remote cholecystectomy, with central than lower than right abdominal pain since evening yesterday, right lower quadrant tenderness on examination, white blood cell count [address]. CT abdomen and pelvis ordered from triage CT abdomen and pelvis noncontrast study, shows acute appendicitis changes, no mention of any perforation or abscess. Status post cholecystectomy. See radiology report. IV Zosyn antibiotic 1st dose now. Keep NPO. IV Dilaudid/Zofran, pain seemed to be improved 2300, case discussed with surgery Dr. Gordon who agrees with antibiotics and admission to hospitalist service, he would like to consult, surgery likely tomorrow morning. We will page hospitalist [phone], case discussed with hospitalist Dr. Das, accepts patient for admission to observation, we will coordinate surgical consultation Critical Care Time Critical Care Time Critical Care Time: Yes Total Critical Care Time: 35 Attestation: The high probability of a clinically significant, sudden or life threatening deterioration of the [gastrointestinal, abdominopelvic] system(s) required my full and direct attention, intervention and personal management. The aggregate critical care time was [35] minutes. This time is in addition to time spent performing reported procedures but includes the following: [x] Data Review and interpretation [x] Patient assessment and monitoring of vital signs [x] Documentation [x] Medication orders and management Discharge Plan Departure Patient Disposition: Admitted as Observation Clinical Impression: Acute appendicitis Admit Date/Time: 04/30/24 23:33 Admit Provider: Zackary Das
[2024-04-30] MEDS: HYDROMORPHONE 0.5 MG INJ IV (22:46)
[2024-04-30] MEDS: LACTATED RINGERS 1,000 ML 1000 ML IV (23:09)
--- NOTE | 2024-04-30 23:50 | PC.NURSE ---
Surgeon at bedside
--- NOTE | 2024-04-30 23:58 | PC.NURSE ---
BABATUNDE Boogie from OR at bedside
[2024-05-01] VITALS (17 sets, daily range): BP systolic 116–143; BP diastolic 78–97; PULSE 98–115; RESP 12–104; TEMP 36.6–37; O2SAT 95–100; BMI 33.6
--- NOTE | 2024-05-01 | PATH_ITS ---
[facility] Accession Number: [id number] No. of containers..01 Tissue . 01 Material submitted: . appendix - APPENDIX . 01 Diagnosis: APPENDIX, APPENDECTOMY: Acute suppurative appendicitis with serositis. [facility] 05/05/2024 1145 Local . 01 Electronically signed: . Yary Holm DO, Pathologist NPI- [id number] . 01 Gross description: . Received in formalin with two patient identifiers and appendix, is a vermiform appendix, 8.1 x 0.9 cm with casillas, roughened serosa and adherent material consistent with exudate. The mesoappendix is extends out to 1.4 cm. The margin is inked blue. Sectioning reveals the lumen to contain brown, semisolid fecal material and average 0.6 cm in diameter. The macias are thin and fragment, 0.1 cm thick, with no perforation or lesions identified. Traveling Representative sections to include one-half of the bisected distal tip, margin, and cross section are submitted in A1. ([id number]) /MRV 05/04/2024 1727 Local . 01 Pathologist provided ICD-10: K35.80 . 01 CPT . 436998 Specimen Comment: A courtesy copy of this report has been sent to [facility] Pathology Performed at: [address] [address], [place], [place] [id number] MD Braeden Sen MD Phone: [phone]
--- NOTE | 2024-05-01 00:01 | PM.CN ---
History of Present Illness Consult details Date Patient Seen: 04/30/24 Time Patient Seen: 23:50 Chief complaint: sent by [facility], rt lower quad abd px Reason for consult: Acute appendicitis, started > 24 hrs ago, yesterday at 3 pm..!! Meds Home Medications and Allergies Home Medications Medication Instructions Recorded Confirmed Type Probiotic See Rx Instructions .Route 02/04/22 01/23/24 Rx .COMPLEX #100 caps coenzyme Q10 100 mg capsule (Co 100 mg PO DAILY 02/04/22 01/23/24 History Q-10) folate See Rx Instructions .Route .COMPLEX 02/04/22 01/23/24 History magnesium aspart,citrate,oxide mg PO 02/04/22 01/23/24 History mecobalamin (vitamin B12) 1,000 1,000 mcg PO DAILY 02/04/22 01/23/24 History mcg chewable tablet (B12 Active) propranolol 10 mg tablet 10 mg PO BID 02/12/23 01/23/24 History protriptyline 10 mg tablet 30 mg PO BEDTIME 02/12/23 01/23/24 History ubrogepant 50 mg tablet 50 mg PO ONCE 02/12/23 01/23/24 History verapamil 120 mg tablet 120 mg PO DAILY 02/12/23 01/23/24 History norethindrone acetate 1 mg-ethinyl See Rx Instructions .Route 01/28/24 Rx estradiol 20 mcg tablet .COMPLEX #126 tabs Allergies Allergy/AdvReac Type Severity Reaction Status Date / Time No Known Drug Allergies Allergy Verified 01/23/24 10:44 Review of Systems Review of Systems Narrative: RLQ pain, with localized peritoneal signs, Positive Rovsing's sign. ROS: Yes All systems reviewed with the patient and are negative except as otherwise documented Exam Vital Signs (past 8 hours): - 04/30/24 17:59 04/30/24 21:08 04/30/24 21:34 Temperature 99.3 F Pulse Rate 125 H 119 H Respiratory Rate 16 Blood Pressure 113/82 137/89 Pulse Oximetry 99 100 Oxygen Delivery Method Room Air Room Air 04/30/24 21:34 04/30/24 22:00 04/30/24 22:00 Temperature Pulse Rate 127 H 113 H Respiratory Rate 18 16 Blood Pressure 123/81 Pulse Oximetry 97 98 Oxygen Delivery Method Room Air Room Air 04/30/24 22:30 04/30/24 22:30 04/30/24 23:00 Temperature Pulse Rate 112 H 116 H Respiratory Rate 16 16 Blood Pressure 113/75 Pulse Oximetry 99 98 Oxygen Delivery Method Room Air Room Air 04/30/24 23:00 04/30/24 23:30 04/30/24 23:30 Temperature Pulse Rate 109 H Respiratory Rate 14 Blood Pressure 122/84 119/83 Pulse Oximetry 100 Oxygen Delivery Method Room Air Oxygen Delivery Method Room Air Narrative Exam Narrative: RLQ pain, with localized peritoneal signs, Positive Rovsing's sign. and CT proved acute appendicitis, NON perforated so far..! Objective Labs 04/30/24 18:20 04/30/24 18:20 Labs: Laboratory Results - last 24 hr 04/30/24 18:20 WBC 16.9 H RBC 5.10 Hgb 14.6 Hct 44.1 MCV 86.6 MCH 28.7 MCHC 33.1 RDW 13.4 Plt Count 316 Neut % (Auto) 81.5 H Lymph % (Auto) 12.5 L [place] % (Auto) 5.4 Eos % (Auto) 0.2 L Baso % (Auto) 0.4 Neut # (Auto) 58220 H Lymph # (Auto) 2100 [place] # (Auto) 900 Eos # (Auto) 0 Baso # (Auto) 100 Sodium 134 L Potassium 3.5 Chloride 101 Carbon Dioxide 22 BUN 11 Creatinine 0.87 Estimated GFR > 60 BUN/Creatinine Ratio 12.6 Glucose 122 H Calcium 9.4 Total Bilirubin 0.8 AST 25 ALT 25 Alkaline Phosphatase 79 Total Protein 7.8 Albumin 4.4 Globulin 3.4 Albumin/Globulin Ratio 1.3 Lipase 33 [facility] Medical History (Updated 05/01/24 @ 00:05 by Antoinette Gordon MD) Osteoarthritis cervical spine Ovarian cyst (1989) Shoulder pain (2011) Chlamydia (1992) Menorrhagia Hiatal hernia Hayfever (2011) GERD (gastroesophageal reflux disease) (2005) Abnormal Pap smear of cervix (2010) Chicken pox (1980) CTS (carpal tunnel syndrome) (1997) Chronic nausea Vaginal delivery Vaginal delivery Surgical History Anesthesia Status post loop electrosurgical excision procedure (LEEP) of cervix (2008) Status post cholecystectomy (2007) Status post dilation and curettage (1995) History of third molar tooth extraction (1993) History of tonsillectomy (1989) Family History Grandfather Heart disease Heart attack Grandmother Age: 103 Polycystic kidney Liver disease Mother Age: 70 Polycystic kidney Polycystic liver disease Grandfather Mental health problem Cancer Brother Stroke MRSA infection Father Thyroid cancer Grandmother No problems noted. Tobacco & Substance Use Smoking Status: Former smoker Assessment & Plan Assessment and plan (1) Acute appendicitis: Problem details: RLQ pain, with localized peritoneal signs, Positive Rovsing's sign. Pain started > 24 hrs ago, yesterday at 3 pm! IV antibiotic given by ED, Zosyn, and will place teds and scds, and will proceed with lap appendectomy, NOW, to avoid rupture. Pain control and nausea control. Status: Acute Time-Based Coding :: [TOTAL MINUTES] spent with patient and on the chart (including review of chart, obtaining history, exam, reviewing outside data, placing orders, documenting exam and treatment plan, and counseling patient) on [DATE].
--- NOTE | 2024-05-01 00:06 | P.OP_ITS ---
Operative Date/Time/Diagnoses Date of procedure: 05/01/24 Time of procedure: 01:49 Pre-op diagnosis: Acute appendicitis, uncomplicated but > 24 hrs Post-op diagnosis: other Procedure & Clinicians Procedure: Lap appendectomy Same procedure as scheduled: Yes Indications: > 24 hrs pain from acute appendicitis Surgeon: Antoinette Gordon Anesthesia Type: General and Local Operative Notes Closure Type: primary Specimen(s): other Prosthetic devices, grafts, tissues, transplants, or devices: Appendix was sent to path. Estimated Blood Loss (mL): 2 Blood products transfused: none Procedure in detail: LAPAROSCOPIC APPENDECTOMY OPERATIVE NOTE Ashli Woody, 1975, 49, Female, CSN: [id number] 05/01/24 PRE-OP DIAGNOSIS: Acute Appendicitis POST-OP DIAGNOSIS: Same not perforated but gangrenous and necrotic all but the very base.. PROCEDURE(S): Laparoscopic Appendectomy + lavage of the peritoneal cavity after suction of the pus. SURGEON(S): Antoinette Gordon MD, FACS, FICS EMBEDDED SYSTEMS DEVELOPER(S): NONE ANESTHESIA: GET + Local 1% Xylocaine with Epinephrine pre op, and 0.5% Marcaine post op. SPECIMENS: Appendix. ESTIMATED BLOOD LOSS: Less then 2 ml DRAIN: NONE COMPLICATIONS: NONE CONDITION / DISPOSITION: Stable, Extubated, to PACU OPERATIVE DESCRIPTION: After properly informed consent was signed by the patient, knowing all the risks, benefits, potential complications and possible alternatives of the procedure, the patient, who had right lower quadrant pain for MORE than 24 hours, with some nausea and vomiting, some fevers, SIGNIFICANT leukocytosis (16K+) and a CT demonstrating an acute uncomplicated appendicitis. The patient was appropriately identified. In the holding area she received Zosyn IV. TEDs and SCDs were placed on her legs and activated bilaterally. She voided her urinary bladder physician relations manager to OR, and Hibiclens skin prep was performed. She was taken to the operating room, and was placed supine on the operating room table, and after institution of general endotracheal anesthesia, her abdomen was prepped and draped in the usual sterile fashion after her suprapubic hair was clipped. The above mentioned anesthetic was used to anesthetize the skin at the intradermal level, followed by the preperitoneal level. Starting at the left aspect of the supra-umbilicus, a 1 cm incision was performed. Dissection was carried down all the way the fascia. The fascia was opened transversly for 1 cm. The peritoneal cavity was entered under direct visualization uneventfully. A [id number] #0 Vicryl was placed for future closure of this fascial defect. The Fawn cannula was introduced under direct visualization. Pneumoperitoneum was instituted using CO2 insufflation up to 14 mmHg pressure. A 5-mm 30-degree scope was introduced, and confirmation of the diagnosis was obvious. Some pus was noted in the pelvis. No raphael perforation, but suppurative inflammation was noted, and the appendix was necrosed all but the very base, and it was 6-7 cm. Two 5-mm ports were placed, suprapubic midline port and left lower quadrant midclavicular line port. All ports were 12 cm apart one from the other in a triangular shape fashion. Lysis of adhesions between the appendix and the lateral pelvic wall, and omentum. The mesoappendix was taken meticulously using the Harmonic scalpel uneventfully. The base of the appendix was circumferentially skeletonized, triply ligated using 0 looped PDS, 2 on the cecal side, 1 on the appendix side. The appendix was divided in between. It was then placed into the EndoCatch bag introduced through the umbilical port after switching the camera to the left lower quadrant port. Suction of the pus was performed and then 1 L of LR was used for irrigation. The appendix was sent to permanent pathology. All ports were removed under direct visualization without any evidence of port site bleeding. Pneumoperitoneum was evacuated. The preplaced #0 Vicryl was tied to approximate the mid umbilical fascial defect. The skin of all wounds were approximated using 4-0 Antibacterial monocryl in a running subcuticular fashion, followed by Dermabond skin glue after further more local anesthetic was injected. Patient tolerated both procedures well very well without any complications, was extubated in the OR, and sent to the PACU in stable condition.
[2024-05-01] MEDS: LACTATED RINGERS 1,000 ML 42 ML IV (00:35)
[2024-05-01] MEDS: ACETAMINOPHEN IV 1,000 MG/100 ML VIAL 400 MG IV (00:42)
--- NOTE | 2024-05-01 00:58 | SUR.OPER ---
Supine on padded OR bed, head on pillow, arms secured on padded arm boards at <90 degrees abduction, legs uncrossed, safety belt at thigh, tape over blanket over lower legs.
[2024-05-01] MEDS: BUPIVACAINE 0.5% (PF) 30 ML VIAL INJ (01:04)
[2024-05-01] MEDS: LIDOCAINE 1% W/EPI 20ML 20 ML INJ (01:05)
[2024-05-01] MEDS: SODIUM CHLORIDE 0.9% 1,000 ML 100 ML IV (02:35)
--- NOTE | 2024-05-01 03:00 | PM.HP.1 ---
History of Present Illness History of Present Illness Chief complaint: sent by [facility], rt lower quad abd px Narrative: 49-year-old female with past medical history of cholecystectomy and migraine presents with abdominal pain. Per the patient report, about two days ago, the patient started to have increasing mid abdominal pain. The patient described her pain as sharp non-radiating and associated with nausea but no vomiting. The patient denies any fever, chills, diarrhea, G.I. bleeding, chest pain or shortness of breath. In our emergency room, the patient was hemodynamically stable. The patient WBC was 17,000 but otherwise no other signs of sepsis. Other labs were benign. CT abdomen show signs of acute appendicitis. General surgery was consulted and recommended to be admitted for possible appendectomy. Tje patient was given IV Zosyn and IV fluid. IV pain medication was also given. [facility] Medical History (Updated 05/01/24 @ 00:05 by Antoinette Gordon MD) Osteoarthritis cervical spine Ovarian cyst (1989) Shoulder pain (2011) Chlamydia (1992) Menorrhagia Hiatal hernia Hayfever (2011) GERD (gastroesophageal reflux disease) (2005) Abnormal Pap smear of cervix (2010) Chicken pox (1980) CTS (carpal tunnel syndrome) (1997) Chronic nausea Vaginal delivery Vaginal delivery Surgical History Anesthesia Status post loop electrosurgical excision procedure (LEEP) of cervix (2008) Status post cholecystectomy (2007) Status post dilation and curettage (1995) History of third molar tooth extraction (1993) History of tonsillectomy (1989) Family History Grandfather Heart disease Heart attack Grandmother Age: 103 Polycystic kidney Liver disease Mother Age: 70 Polycystic kidney Polycystic liver disease Grandfather Mental health problem Cancer Brother Stroke MRSA infection Father Thyroid cancer Grandmother No problems noted. Social History household members: spouse Smoking Status: Former smoker Meds Home Medications and Allergies Home Medications Medication Instructions Recorded Confirmed Type protriptyline 10 mg tablet 30 mg PO BEDTIME 02/12/23 05/01/24 History verapamil 120 mg tablet 120 mg PO DAILY 02/12/23 05/01/24 History propranolol 10 mg tablet 10 mg PO BID 05/01/24 05/01/24 History terbinafine HCl 250 mg tablet 250 mg PO DAILY 05/01/24 05/01/24 History Allergies Allergy/AdvReac Type Severity Reaction Status Date / Time No Known Drug Allergies Allergy Verified 01/23/24 10:44 Review of Systems Review of Systems ROS: Yes All systems reviewed with the patient and are negative except as otherwise documented Exam Vital Signs (past 8 hours): - 04/30/24 21:08 04/30/24 21:34 04/30/24 21:34 Temperature Pulse Rate 119 H 127 H Respiratory Rate 18 Blood Pressure 113/82 137/89 Pulse Oximetry 100 97 Oxygen Delivery Method Room Air Room Air 04/30/24 22:00 04/30/24 22:00 04/30/24 22:30 Temperature Pulse Rate 113 H 112 H Respiratory Rate 16 16 Blood Pressure 123/81 Pulse Oximetry 98 99 Oxygen Delivery Method Room Air Room Air 04/30/24 22:30 04/30/24 23:00 04/30/24 23:00 Temperature Pulse Rate 116 H Respiratory Rate 16 Blood Pressure 113/75 122/84 Pulse Oximetry 98 Oxygen Delivery Method Room Air 04/30/24 23:30 04/30/24 23:30 05/01/24 00:15 Temperature 98.6 F Pulse Rate 109 H 111 H Respiratory Rate 14 21 Blood Pressure 119/83 134/95 H Pulse Oximetry 100 100 Oxygen Delivery Method Room Air Room Air 05/01/24 01:50 05/01/24 01:55 05/01/24 02:01 Temperature 98.4 F Pulse Rate 115 H 113 H 107 H Respiratory Rate 16 12 15 Blood Pressure 135/95 H 123/86 129/93 H Pulse Oximetry 99 99 98 Oxygen Delivery Method Room Air Room Air Room Air Oxygen Delivery Method Room Air Narrative Exam Narrative: Physical Exam: GENERAL: The patient is not in any acute distressed. Awake and alert. HEENT: Nonicteric sclerae, PERRLA, EOMI. Oropharynx clear. Moist mucous membranes. Conjunctivae appear well perfused. HEART: Regular rate and rhythm without murmurs. No lower extremities edema. LUNGS: Clear to auscultation bilaterally. No wheezing, crackles or rhonchi ABDOMEN: Soft, decrease bowel sounds, generalized tenderness with post surgical wound intact SKIN: No rash, no excessive bruising, petechiae, or purpura. NEUROLOGIC: AxO x 3. Cranial nerves II-XII intact without motor/sensory deficit. Objective Labs 04/30/24 18:20 04/30/24 18:20 Labs: Laboratory Results - last 24 hr 04/30/24 18:20 WBC 16.9 H RBC 5.10 Hgb 14.6 Hct 44.1 MCV 86.6 MCH 28.7 MCHC 33.1 RDW 13.4 Plt Count 316 Neut % (Auto) 81.5 H Lymph % (Auto) 12.5 L [place] % (Auto) 5.4 Eos % (Auto) 0.2 L Baso % (Auto) 0.4 Neut # (Auto) 58596 H Lymph # (Auto) 2100 [place] # (Auto) 900 Eos # (Auto) 0 Baso # (Auto) 100 Sodium 134 L Potassium 3.5 Chloride 101 Carbon Dioxide 22 BUN 11 Creatinine 0.87 Estimated GFR > 60 BUN/Creatinine Ratio 12.6 Glucose 122 H Calcium 9.4 Total Bilirubin 0.8 AST 25 ALT 25 Alkaline Phosphatase 79 Total Protein 7.8 Albumin 4.4 Globulin 3.4 Albumin/Globulin Ratio 1.3 Lipase 33 Assessment & Plan Assessment & Plan narrative: Acute appendicitis. Admit the patient to medical observation. Of note the patient is not septic at this time is hemodynamically stable. CT abdomen show acute appendicitis without abscess or perforation. Continue IV Zosyn, IV fluid and IV pain medication PRN. NPO. Again general surgery is planning for appendectomy. History of migraine. No cute attacks right now. Will resume home medication accordingly. DVT prophylaxis. SCDs due to plan surgery today Code status full code. Disposition likely home in one to two days. Time-Based Coding :: [TOTAL MINUTES] spent with patient and on the chart (including review of chart, obtaining history, exam, reviewing outside data, placing orders, documenting exam and treatment plan, and counseling patient) on [DATE].
[2024-05-01] MEDS: IBUPROFEN 600 MG TABLET PO ×3 (05:30→18:20)
[2024-05-01] MEDS: PIPERACILLIN/TAZO 3.375 GM in SODIUM CHLORIDE 0.9% 100 ML IV ×3 (05:32→22:12)
[2024-05-01] MEDS: ACETAMINOPHEN 325 MG TABLET 650 MG PO ×2 (05:32→12:05)
[2024-05-01 06:10] LABS: Add Manual Diff / Slide Review NO; Basophils Absolute Auto 0 /uL (0-100); Basophils Percent Auto 0.1 % (0-2); Eosinophils Absolute Auto 0 /uL (0-450); Hematocrit 36.7 % (36-46); Hemoglobin 12.4 g/dL (12.0-16.0); Lymphocytes Absolute Auto 600 /uL (1100-4500); Lymphocytes Percent Auto 4.7 % (25-40); Mean Corpuscular HGB Conc 33.7 % (30-36); Mean Corpuscular Hemoglobin 29.1 PG (26-34); Mean Corpuscular Volume 86.4 fL (80-100); Monocytes Absolute Auto 200 /uL (0-900); Monocytes Percent Auto 1.7 % (3-14); Neutrophils Absolute Auto 12400 /uL (1500-7000); Neutrophils Percent Auto 93.5 % (50-75); Platelet Count 226 X10^3/uL (150-400); Red Blood Cell Count 4.25 X10^6/uL (4.0-5.2); Red Cell Distribution Width 13.7 % (11.6-14.8); White Blood Cell Count 13.3 X10^3/uL (4.5-11.0)
[2024-05-01 06:26] LABS: Alanine Aminotransferase 23 IU/L (<35); Albumin 3.6 g/dL (3.5-5.0); Albumin Globulin Ratio 1.3 (1.0-2.8); Alkaline Phosphatase 77 U/L (38-126); Aspartate Aminotransferase 27 IU/L (14-36); Bilirubin Total 0.7 mg/dL (0.2-1.3); Blood Urea Nitrogen 10 mg/dL (7-17); Calcium 8.1 mg/dL (8.4-10.2); Carbon Dioxide 21 mmol/L (22-32); Chloride 104 mmol/L (98-107); Estimated Glomerular Filt Rate > 60 mL/min (>60); Globulin 2.8 g/dL (1.7-4.1); Glucose 160 mg/dL (70-100); HEMOLYSIS < 15 (0-50); Potassium 3.8 mmol/L (3.4-5.1); Sodium 132 mmol/L (137-145); Total Protein 6.4 g/dL (6.3-8.2)
[2024-05-01 08:16] LABS: Add Manual Diff / Slide Review NO; Basophils Absolute Auto 0 /uL (0-100); Basophils Percent Auto 0.2 % (0-2); Eosinophils Absolute Auto 0 /uL (0-450); Hematocrit 37.3 % (36-46); Hemoglobin 12.4 g/dL (12.0-16.0); Lymphocytes Absolute Auto 500 /uL (1100-4500); Lymphocytes Percent Auto 3.7 % (25-40); Mean Corpuscular HGB Conc 33.3 % (30-36); Mean Corpuscular Hemoglobin 28.8 PG (26-34); Mean Corpuscular Volume 86.4 fL (80-100); Monocytes Absolute Auto 200 /uL (0-900); Monocytes Percent Auto 1.5 % (3-14); Neutrophils Absolute Auto 12600 /uL (1500-7000); Neutrophils Percent Auto 94.6 % (50-75); Platelet Count 238 X10^3/uL (150-400); Red Blood Cell Count 4.32 X10^6/uL (4.0-5.2); Red Cell Distribution Width 13.6 % (11.6-14.8); White Blood Cell Count 13.3 X10^3/uL (4.5-11.0)
--- NOTE | 2024-05-01 08:22 | P.HP_ITS ---
History of Present Illness History of Present Illness Date Patient Seen: 05/01/24 Chief complaint: sent by [facility], rt lower quad abd px Narrative: From night doctor: 49-year-old female with past medical history of cholecystectomy and migraine presents with abdominal pain. Per the patient report, about two days ago, the patient started to have increasing mid abdominal pain. The patient described her pain as sharp non-radiating and associated with nausea but no vomiting. The patient denies any fever, chills, diarrhea, G.I. bleeding, chest pain or shortness of breath. In our emergency room, the patient was hemodynamically stable. The patient WBC was 17,000 but otherwise no other signs of sepsis. Other labs were benign. CT abdomen show signs of acute appendicitis. General surgery was consulted and recommended to be admitted for possible appendectomy. Tje patient was given IV Zosyn and IV fluid. IV pain medication was also given. Additional information: No additional information other than with a 2 days of abdominal pain. [facility] Medical History Osteoarthritis cervical spine Ovarian cyst (1989) Shoulder pain (2011) Chlamydia (1992) Menorrhagia Hiatal hernia Hayfever (2011) GERD (gastroesophageal reflux disease) (2005) Abnormal Pap smear of cervix (2010) Chicken pox (1980) CTS (carpal tunnel syndrome) (1997) Chronic nausea Vaginal delivery Vaginal delivery Surgical History Anesthesia Status post loop electrosurgical excision procedure (LEEP) of cervix (2008) Status post cholecystectomy (2007) Status post dilation and curettage (1995) History of third molar tooth extraction (1993) History of tonsillectomy (1989) Family History Grandfather Heart disease Heart attack Grandmother Age: 103 Polycystic kidney Liver disease Mother Age: 70 Polycystic kidney Polycystic liver disease Grandfather Mental health problem Cancer Brother Stroke MRSA infection Father Thyroid cancer Grandmother No problems noted. Social History household members: spouse Smoking Status: Former smoker Meds Home Medications and Allergies Home Medications Medication Instructions Recorded Confirmed Type protriptyline 10 mg tablet 30 mg PO BEDTIME 02/12/23 05/01/24 History verapamil 120 mg tablet 120 mg PO DAILY 02/12/23 05/01/24 History propranolol 10 mg tablet 10 mg PO BID 05/01/24 05/01/24 History terbinafine HCl 250 mg tablet 250 mg PO DAILY 05/01/24 05/01/24 History Allergies Allergy/AdvReac Type Severity Reaction Status Date / Time No Known Drug Allergies Allergy Verified 01/23/24 10:44 Review of Systems Review of Systems Narrative: All else reviewed and otherwise unremarkable except as noted in the history and physical. Exam Vital Signs (past 8 hours): - 05/01/24 01:50 05/01/24 01:55 05/01/24 02:01 Temperature 98.4 F Pulse Rate 115 H 113 H 107 H Respiratory Rate 16 12 15 Blood Pressure 135/95 H 123/86 129/93 H Pulse Oximetry 99 99 98 Oxygen Delivery Method Room Air Room Air Room Air Oxygen Flow Rate 05/01/24 03:00 05/01/24 03:30 05/01/24 04:00 Temperature Pulse Rate 110 H 98 H 106 H Respiratory Rate 18 104 H 18 Blood Pressure 130/91 H 124/89 128/95 H Pulse Oximetry 96 98 95 Oxygen Delivery Method Oxygen Flow Rate 0 0 0 05/01/24 04:14 05/01/24 05:20 05/01/24 06:33 Temperature Pulse Rate 108 H 100 H Respiratory Rate 20 Blood Pressure 143/97 H 132/94 H Pulse Oximetry 97 98 96 Oxygen Delivery Method Oxygen Flow Rate 0 0 05/01/24 07:34 Temperature 97.8 F Pulse Rate 100 H Respiratory Rate 18 Blood Pressure 130/84 Pulse Oximetry 97 Oxygen Delivery Method Oxygen Flow Rate 0 Oxygen Delivery Method Room Air Oxygen Flow Rate 0 Narrative Exam Narrative: NAD, alert and oriented, fluent speech, calm. Normocephalic skull, EOMI, anicteric sclera, symmetric pupils. Oropharynx unremarkable, no droop. Neck supple, midline trachea, no adenopathy. Lungs clear, normal rate and effort. Heart regular, no murmur gallop or rub. Abdomen is soft, non distended and non tender (after surgery). Extremities are free of edema. Skin is free of rash or lesions. Joints are not swollen or deformed. Judgment appears to be normal. Objective Imaging CT scan - abdomen: Radiologist's impression: 1. Acute appendicitis. No rupture demonstrated. 2. No hydronephrosis. Punctate nonobstructing left kidney stone. 3. Post cholecystectomy. Labs 05/01/24 08:09 05/01/24 08:09 Labs: Laboratory Results - last 24 hr 04/30/24 05/01/24 05/01/24 18:20 05:20 08:09 WBC 16.9 H 13.3 H 13.3 H RBC 5.10 4.25 4.32 Hgb 14.6 12.4 12.4 Hct 44.1 36.7 37.3 MCV 86.6 86.4 86.4 MCH 28.7 29.1 28.8 MCHC 33.1 33.7 33.3 RDW 13.4 13.7 13.6 Plt Count 316 226 238 Neut % (Auto) 81.5 H 93.5 H 94.6 H Lymph % (Auto) 12.5 L 4.7 L 3.7 L [place] % (Auto) 5.4 1.7 L 1.5 L Eos % (Auto) 0.2 L 0.0 L 0.0 L Baso % (Auto) 0.4 0.1 0.2 Neut # (Auto) 51607 H 66822 H 14541 H Lymph # (Auto) 2100 600 L 500 L [place] # (Auto) 900 200 200 Eos # (Auto) 0 0 0 Baso # (Auto) 100 0 0 Sodium 134 L 132 L Potassium 3.5 3.8 Chloride 101 104 Carbon Dioxide 22 21 L BUN 11 10 Creatinine 0.87 0.83 Estimated GFR > 60 > 60 BUN/Creatinine Ratio 12.6 12.0 Glucose 122 H 160 H Calcium 9.4 8.1 L Total Bilirubin 0.8 0.7 AST 25 27 ALT 25 23 Alkaline Phosphatase 79 77 Total Protein 7.8 6.4 Albumin 4.4 3.6 Globulin 3.4 2.8 Albumin/Globulin Ratio 1.3 1.3 Lipase 33 Assessment & Plan Assessment & Plan narrative: 1. Acute appendicitis. Status post laparoscopic appendectomy with findings of a severely necrose the appendix with rupture and pus in the pelvis. 2. Peritonitis, present on admission and active. 3. History of migraine. No cute attacks right now. Will resume home medication accordingly. 4. Obesity class 1. PLAN: -She requires IV antibiotics and another night of hospital care for peritonitis associated with her ruptured appendicitis. -regular diet was recommended by surgery. ROCIO: 05/02. DVT prophylaxis. SCDs due to plan surgery today Code status full code. Time-Based Coding :: 35 min spent with patient and on the chart (including review of chart, obtaining history, exam, reviewing outside data, placing orders, documenting exam and treatment plan, and counseling patient) on 05/01. Quality MIPS - Admit I confirm the patient?s Advance Care Plan is present, Code status is documented, Surrogate decision maker is in patient?s record [If Yes, STOP here]: Yes MIPS - Meds 'Current medications' to include all prescriptions, [id number] products, herbals, cannabis/cannabidiol products, and vitamin/mineral/dietary (nutritional) supplements. I have utilized all available resources to obtain, update, or review the patient?s current medications. [If Yes, STOP here]: Yes
[2024-05-01 08:25] LABS: BUN Creatinine Ratio 11.8 (6-22); Blood Urea Nitrogen 9 mg/dL (7-17); Calcium 8.3 mg/dL (8.4-10.2); Carbon Dioxide 22 mmol/L (22-32); Chloride 105 mmol/L (98-107); Estimated Glomerular Filt Rate > 60 mL/min (>60); Glucose 163 mg/dL (70-100); HEMOLYSIS < 15 (0-50); Sodium 132 mmol/L (137-145)
[2024-05-01] MEDS: SENNOSIDES 8.6 MG TABLET 17.2 MG PO (09:16)
[2024-05-01] MEDS: VERAPAMIL 80 MG TABLET 40 MG PO ×3 (09:16→20:00)
[2024-05-01] MEDS: ENOXAPARIN 40 MG/0.4 ML SYRINGE SUBCUT (09:16)
[2024-05-01] MEDS: HYDROCODONE/ACET 5/325 TABLET 2 TAB PO ×2 (09:17→19:59)
[2024-05-01] MEDS: PANTOPRAZOLE 40 MG VIAL 20 MG IV (09:17)
--- NOTE | 2024-05-01 11:15 | CM.DANOTE ---
Patient is a 49 yo female who was admitted Inpt Status on 04/30/24 for Abd Pain. Pt has [employer] for insurance and her PCP is Dr. Vicky Callahan at [facility]. EMR was reviewed. Per Surgeon, pt with acute appendicitis without rupture but with some gangrene and tolerated surgery well and pt with a hx of cholecystectomy and possible d/c home tonight vs tomorrow pending labs. Currently on IV-Abx. SW met bedside with pt and explained role and she confirms she lives at home in [place] with her and pt is active and independent at baseline and does not use DME to ambulate and denies any hx of HH or SNF. Pt states her spouse is her informal POA and they will be working on formal pwk and Living Will. Pt confirms she had a general diet for breakfast this morning and tolerated well and pain is controlled and pt is hopeful to d/c home later today if labs are stable and does not anticipate any needs at d/c. Pt preference is home and confirms spouse can transport at d/c and assist at home as needed. Plan: SW to follow for plan of patient discharge home later today vs tomorrow pending white count and progress and no identified barriers to discharge at this time. CLARK Rogers Discharge Planning/Care Management CM Discharge Assessment Start: 05/01/24 11:13 Freq: Status: Active Protocol: Document 05/01/24 11:14 BF (Rec: 05/01/24 11:15 BF [id number]) Discharge Planning Assessment Assigned Scrap Piler CLARK Fernández DPOA/Assigned Designee Name informally spouse Duran Contact Information [phone] Advance Directives? Yes Advance Directives on File No History Provided By Patient,Medical Record Has Patient been admitted in last 30 No days? Prior Living Arrangements House Household Members spouse Type of transporation used prior to Drives own vehicle admit Independent with ADL's Yes Is patient alert and oriented? Yes Caregiver for Another No Barriers to Discharge No Discharge Plan Home Transportation Arrangement spouse confirms he can transport at d/c Referrals Initiated None needed Whiteboard Updated in Patient Room with Yes name and ext. # of Scrap Piler Review Status In Process Please Provide Date Initial DC 05/01/24 Assessment Was Performed Next Review Type Continued Stay Review
--- NOTE | 2024-05-01 11:37 | PM.PNPO.1 ---
Subjective Subjective Date Patient Seen: 05/01/24 Time Patient Seen: 11:37 Exam Vital Signs (past 8 hours): - 05/01/24 04:00 05/01/24 04:14 05/01/24 05:20 Temperature Pulse Rate 106 H 108 H Respiratory Rate 18 20 Blood Pressure 128/95 H 143/97 H Pulse Oximetry 95 97 98 Oxygen Delivery Method Oxygen Flow Rate 0 0 05/01/24 06:33 05/01/24 07:30 05/01/24 07:34 Temperature 97.8 F Pulse Rate 100 H 100 H Respiratory Rate 18 Blood Pressure 132/94 H 130/84 Pulse Oximetry 96 97 Oxygen Delivery Method Room Air Oxygen Flow Rate 0 0 05/01/24 08:00 05/01/24 11:26 Temperature 98.0 F Pulse Rate 100 H Respiratory Rate 19 Blood Pressure 117/86 Pulse Oximetry 99 97 Oxygen Delivery Method Room Air Oxygen Flow Rate 0 Oxygen Delivery Method Room Air Oxygen Flow Rate 0 Narrative Exam Narrative: No more pain in her abdomen, it's GONE! Thank God. Objective Labs 05/01/24 08:09 05/01/24 08:09 Labs: Laboratory Results - last 24 hr 04/30/24 05/01/24 05/01/24 18:20 05:20 08:09 WBC 16.9 H 13.3 H 13.3 H RBC 5.10 4.25 4.32 Hgb 14.6 12.4 12.4 Hct 44.1 36.7 37.3 MCV 86.6 86.4 86.4 MCH 28.7 29.1 28.8 MCHC 33.1 33.7 33.3 RDW 13.4 13.7 13.6 Plt Count 316 226 238 Neut % (Auto) 81.5 H 93.5 H 94.6 H Lymph % (Auto) 12.5 L 4.7 L 3.7 L [place] % (Auto) 5.4 1.7 L 1.5 L Eos % (Auto) 0.2 L 0.0 L 0.0 L Baso % (Auto) 0.4 0.1 0.2 Neut # (Auto) 21708 H 38099 H 41240 H Lymph # (Auto) 2100 600 L 500 L [place] # (Auto) 900 200 200 Eos # (Auto) 0 0 0 Baso # (Auto) 100 0 0 Sodium 134 L 132 L 132 L Potassium 3.5 3.8 4.0 Chloride 101 104 105 Carbon Dioxide 22 21 L 22 BUN 11 10 9 Creatinine 0.87 0.83 0.76 Estimated GFR > 60 > 60 > 60 BUN/Creatinine Ratio 12.6 12.0 11.8 Glucose 122 H 160 H 163 H Calcium 9.4 8.1 L 8.3 L Total Bilirubin 0.8 0.7 AST 25 27 ALT 25 23 Alkaline Phosphatase 79 77 Total Protein 7.8 6.4 Albumin 4.4 3.6 Globulin 3.4 2.8 Albumin/Globulin Ratio 1.3 1.3 Lipase 33 PFSH Medical History Osteoarthritis cervical spine Ovarian cyst (1989) Shoulder pain (2011) Chlamydia (1992) Menorrhagia Hiatal hernia Hayfever (2011) GERD (gastroesophageal reflux disease) (2005) Abnormal Pap smear of cervix (2010) Chicken pox (1980) CTS (carpal tunnel syndrome) (1997) Chronic nausea Vaginal delivery Vaginal delivery Surgical History Anesthesia Status post loop electrosurgical excision procedure (LEEP) of cervix (2008) Status post cholecystectomy (2007) Status post dilation and curettage (1995) History of third molar tooth extraction (1993) History of tonsillectomy (1989) Family History Grandfather Heart disease Heart attack Grandmother Age: 103 Polycystic kidney Liver disease Mother Age: 70 Polycystic kidney Polycystic liver disease Grandfather Mental health problem Cancer Brother Stroke MRSA infection Father Thyroid cancer Grandmother No problems noted. Social History household members: spouse Smoking Status: Former smoker Assessment & Plan Post-op Postoperative Procedures: Procedures Operation Date: 04/30/24 23:45 Actual Procedure Side Surgeon p Laparoscopic Appendectomy Antoinette Gordon MD Postoperative day: 1 Postoperative status narrative: Doing VERY well, and leukocytosis, resolving, BUT needs more IV Zosyn x 24 more hrs, because of the pus in her pelvis, and the gangrenous, necrosed appendicitis that she had; and then she can be discharged tomorrow morning.
[2024-05-01] MEDS: SODIUM CHLORIDE 0.9% FLUSH 10 ML IV (20:33)
[2024-05-02] VITALS: O2SAT 97
[2024-05-02] MEDS: HYDROCODONE/ACET 5/325 TABLET 2 TAB PO ×3 (00:14→08:45)
[2024-05-02] MEDS: IBUPROFEN 600 MG TABLET PO ×2 (00:14→05:48)
[2024-05-02 01:02] VITALS: BP 117/76; PULSE 102; RESP 18; TEMP 37.1; O2SAT 96
[2024-05-02 04:21] VITALS: BP 121/83; PULSE 102; RESP 20; TEMP 36.8; O2SAT 95
[2024-05-02] MEDS: SODIUM CHLORIDE 0.9% FLUSH 10 ML IV ×2 (05:49→08:49)
[2024-05-02] MEDS: PIPERACILLIN/TAZO 3.375 GM in SODIUM CHLORIDE 0.9% 100 ML IV (05:49)
[2024-05-02 08:00] VITALS: O2SAT 96
[2024-05-02 08:19] VITALS: BP 132/91; PULSE 93; RESP 16; TEMP 36.8; O2SAT 97
--- NOTE | 2024-05-02 08:21 | PM.PNPO.1 ---
Exam Vital Signs (past 8 hours): - 05/02/24 01:02 05/02/24 04:21 05/02/24 08:00 Temperature 98.7 F 98.3 F Pulse Rate 102 H 102 H Respiratory Rate 18 20 Blood Pressure 117/76 121/83 Pulse Oximetry 96 95 96 Oxygen Delivery Method Room Air Oxygen Flow Rate 0 0 0 Oxygen Delivery Method Room Air Oxygen Flow Rate 0 Objective Labs 05/01/24 08:09 05/01/24 08:09 Labs: Laboratory Results - last 24 hr 05/01/24 08:09 Sodium 132 L Potassium 4.0 Chloride 105 Carbon Dioxide 22 BUN 9 Creatinine 0.76 Estimated GFR > 60 BUN/Creatinine Ratio 11.8 Glucose 163 H Calcium 8.3 L PFSH Medical History Osteoarthritis cervical spine Ovarian cyst (1989) Shoulder pain (2011) Chlamydia (1992) Menorrhagia Hiatal hernia Hayfever (2011) GERD (gastroesophageal reflux disease) (2005) Abnormal Pap smear of cervix (2010) Chicken pox (1980) CTS (carpal tunnel syndrome) (1997) Chronic nausea Vaginal delivery Vaginal delivery Surgical History Anesthesia Status post loop electrosurgical excision procedure (LEEP) of cervix (2008) Status post cholecystectomy (2007) Status post dilation and curettage (1995) History of third molar tooth extraction (1993) History of tonsillectomy (1989) Family History Grandfather Heart disease Heart attack Grandmother Age: 103 Polycystic kidney Liver disease Mother Age: 70 Polycystic kidney Polycystic liver disease Grandfather Mental health problem Cancer Brother Stroke MRSA infection Father Thyroid cancer Grandmother No problems noted. Social History household members: spouse Smoking Status: Former smoker Assessment & Plan Post-op Assessment and plan (1) Acute appendicitis: Postoperative Procedures: Procedures Operation Date: 04/30/24 23:45 Actual Procedure Side Surgeon p Laparoscopic Appendectomy Antoinette Gordon MD Postoperative day: 2 Postoperative status: doing well Postoperative status narrative: Doing very well, ready for discharge, I will Give her Augmentin x 5 more days, and percocet and senokot s.
[2024-05-02 08:36] LABS: Add Manual Diff / Slide Review NO; Basophils Absolute Auto 0 /uL (0-100); Basophils Percent Auto 0.6 % (0-2); Eosinophils Absolute Auto 100 /uL (0-450); Eosinophils Percent Auto 1.1 % (2-4); Hematocrit 34.9 % (36-46); Hemoglobin 11.6 g/dL (12.0-16.0); Lymphocytes Absolute Auto 2500 /uL (1100-4500); Lymphocytes Percent Auto 30.6 % (25-40); Mean Corpuscular HGB Conc 33.2 % (30-36); Mean Corpuscular Volume 87.3 fL (80-100); Monocytes Absolute Auto 600 /uL (0-900); Monocytes Percent Auto 7.1 % (3-14); Neutrophils Absolute Auto 4900 /uL (1500-7000); Neutrophils Percent Auto 60.6 % (50-75); Platelet Count 226 X10^3/uL (150-400); Red Blood Cell Count 3.99 X10^6/uL (4.0-5.2); Red Cell Distribution Width 13.8 % (11.6-14.8); White Blood Cell Count 8.1 X10^3/uL (4.5-11.0)
[2024-05-02] MEDS: SENNOSIDES 8.6 MG TABLET 17.2 MG PO (08:45)
[2024-05-02] MEDS: VERAPAMIL 80 MG TABLET 40 MG PO (08:45)
[2024-05-02 08:46] LABS: BUN Creatinine Ratio 13.6 (6-22); Blood Urea Nitrogen 12 mg/dL (7-17); Calcium 8.2 mg/dL (8.4-10.2); Carbon Dioxide 24 mmol/L (22-32); Chloride 106 mmol/L (98-107); Estimated Glomerular Filt Rate > 60 mL/min (>60); Glucose 115 mg/dL (70-100); HEMOLYSIS < 15 (0-50); Potassium 3.7 mmol/L (3.4-5.1); Sodium 135 mmol/L (137-145)
[2024-05-02] MEDS: PANTOPRAZOLE 40 MG VIAL 20 MG IV (08:49)
[2024-05-02] MEDS: ENOXAPARIN 40 MG/0.4 ML SYRINGE SUBCUT (08:49)
--- NOTE | 2024-05-02 09:44 | PM.PN.1 ---
Subjective Subjective Interval history: The patient feels well today. No right lower quadrant pain. Discussed her with the surgeon, he was going to discharge her today. Antibiotics will be given for an additional 5 days. Exam Vital Signs (past 8 hours): - 05/02/24 04:21 05/02/24 08:00 05/02/24 08:19 Temperature 98.3 F 98.2 F Pulse Rate 102 H 93 H Respiratory Rate 20 16 Blood Pressure 121/83 132/91 H Pulse Oximetry 95 96 97 Oxygen Delivery Method Room Air Oxygen Flow Rate 0 0 0 Oxygen Delivery Method Room Air Oxygen Flow Rate 0 Narrative Exam Narrative: NAD, alert and oriented. Fluent speech. Lungs are clear, normal rate and effort. Heart is regular, no murmur gallop or rub. Abdomen is soft, non distended. Extremities are free of edema. Objective Labs 05/02/24 08:17 05/02/24 08:17 Labs: Laboratory Results - last 24 hr 05/02/24 08:17 WBC 8.1 RBC 3.99 L Hgb 11.6 L Hct 34.9 L MCV 87.3 MCH 29.0 MCHC 33.2 RDW 13.8 Plt Count 226 Neut % (Auto) 60.6 D Lymph % (Auto) 30.6 D [place] % (Auto) 7.1 Eos % (Auto) 1.1 L Baso % (Auto) 0.6 Neut # (Auto) 4900 Lymph # (Auto) 2500 [place] # (Auto) 600 Eos # (Auto) 100 Baso # (Auto) 0 Sodium 135 L Potassium 3.7 Chloride 106 Carbon Dioxide 24 BUN 12 Creatinine 0.88 Estimated GFR > 60 BUN/Creatinine Ratio 13.6 Glucose 115 H Calcium 8.2 L PFSH Medical History Osteoarthritis cervical spine Ovarian cyst (1989) Shoulder pain (2011) Chlamydia (1992) Menorrhagia Hiatal hernia Hayfever (2011) GERD (gastroesophageal reflux disease) (2005) Abnormal Pap smear of cervix (2010) Chicken pox (1980) CTS (carpal tunnel syndrome) (1997) Chronic nausea Vaginal delivery Vaginal delivery Surgical History Anesthesia Status post loop electrosurgical excision procedure (LEEP) of cervix (2008) Status post cholecystectomy (2007) Status post dilation and curettage (1995) History of third molar tooth extraction (1993) History of tonsillectomy (1989) Family History Grandfather Heart disease Heart attack Grandmother Age: 103 Polycystic kidney Liver disease Mother Age: 70 Polycystic kidney Polycystic liver disease Grandfather Mental health problem Cancer Brother Stroke MRSA infection Father Thyroid cancer Grandmother No problems noted. Social History household members: spouse Smoking Status: Former smoker Assessment & Plan Assessment & Plan narrative: 1. Appendicitis, status post appendectomy. Plan is discharge with 5 days of Augmentin and surgical follow up which was arranged by the surgeon. Time-Based Coding :: [TOTAL MINUTES] spent with patient and on the chart (including review of chart, obtaining history, exam, reviewing outside data, placing orders, documenting exam and treatment plan, and counseling patient) on [DATE].
--- NOTE | 2024-05-02 11:52 | PM.DS.1 ---
History of Present Illness History of Present Illness Chief complaint: sent by [facility], rt lower quad abd px Narrative: From night doctor: 49-year-old female with past medical history of cholecystectomy and migraine presents with abdominal pain. Per the patient report, about two days ago, the patient started to have increasing mid abdominal pain. The patient described her pain as sharp non-radiating and associated with nausea but no vomiting. The patient denies any fever, chills, diarrhea, G.I. bleeding, chest pain or shortness of breath. In our emergency room, the patient was hemodynamically stable. The patient WBC was 17,000 but otherwise no other signs of sepsis. Other labs were benign. CT abdomen show signs of acute appendicitis. General surgery was consulted and recommended to be admitted for possible appendectomy. Tje patient was given IV Zosyn and IV fluid. IV pain medication was also given. Additional information: No additional information other than with a 2 days of abdominal pain. Discharge Providers Provider Date of admission: 04/30/24 23:33 Discharge Date: 05/02/24 Primary care physician: Vicky Callahan DO Consults: 04/30/24 23:47 Consult to General Surgery Routine Comment: Consulting Provider: Antoinette Gordon Reason for consultation: acute appy Has provider been notified: Yes 05/01/24 00:12 Consult to Discharge Planning Routine Comment: Discharge provider: Lv Grove MD Summary Hospital Course Discharge Diagnosis: 1. Acute appendicitis. Status post laparoscopic appendectomy with findings of a severely necrose the appendix with rupture and pus in the pelvis. 2. Peritonitis, present on admission and active. 3. History of migraine. No cute attacks right now. Will resume home medication accordingly. 4. Obesity class 1. Hospital Course: She was admitted and underwent appendectomy. There was a necrotic appendix and some purulence in the peritoneum. She was treated with IV antibiotics for 2 midnights and then discharge on oral antibiotics per surgery recommendations. She did well and had no pain and normal appetite at the time of discharge. Status at Discharge Cognitive/behavioral status at discharge: oriented Functional status at discharge: independent ambulation Overall status at discharge: patient is back to baseline Time Spent with Patient Time spent: Greater than 30 minutes Exam Vital Signs (past 8 hours): - 05/02/24 04:21 05/02/24 08:00 05/02/24 08:19 Temperature 98.3 F 98.2 F Pulse Rate 102 H 93 H Respiratory Rate 20 16 Blood Pressure 121/83 132/91 H Pulse Oximetry 95 96 97 Oxygen Delivery Method Room Air Oxygen Flow Rate 0 0 0 Oxygen Delivery Method Room Air Oxygen Flow Rate 0 Narrative Exam Narrative: NAD, alert and oriented. Fluent speech. Lungs are clear, normal rate and effort. Heart is regular, no murmur gallop or rub. Abdomen is soft, non distended. Wounds are unremarkable from laparoscopy. Extremities are free of edema. Objective Imaging CT scan - abdomen: Radiologist's impression: CT scan - abdomen: Radiologist's impression: 1. Acute appendicitis. No rupture demonstrated. 2. No hydronephrosis. Punctate nonobstructing left kidney stone. 3. Post cholecystectomy. Labs 05/02/24 08:17 05/02/24 08:17 Labs: Laboratory Results - last 24 hr 05/02/24 08:17 WBC 8.1 RBC 3.99 L Hgb 11.6 L Hct 34.9 L MCV 87.3 MCH 29.0 MCHC 33.2 RDW 13.8 Plt Count 226 Neut % (Auto) 60.6 D Lymph % (Auto) 30.6 D [place] % (Auto) 7.1 Eos % (Auto) 1.1 L Baso % (Auto) 0.6 Neut # (Auto) 4900 Lymph # (Auto) 2500 [place] # (Auto) 600 Eos # (Auto) 100 Baso # (Auto) 0 Sodium 135 L Potassium 3.7 Chloride 106 Carbon Dioxide 24 BUN 12 Creatinine 0.88 Estimated GFR > 60 BUN/Creatinine Ratio 13.6 Glucose 115 H Calcium 8.2 L PFSH Medical History Osteoarthritis cervical spine Ovarian cyst (1989) Shoulder pain (2011) Chlamydia (1992) Menorrhagia Hiatal hernia Hayfever (2011) GERD (gastroesophageal reflux disease) (2005) Abnormal Pap smear of cervix (2010) Chicken pox (1980) CTS (carpal tunnel syndrome) (1997) Chronic nausea Vaginal delivery Vaginal delivery Surgical History Anesthesia Status post loop electrosurgical excision procedure (LEEP) of cervix (2008) Status post cholecystectomy (2007) Status post dilation and curettage (1995) History of third molar tooth extraction (1993) History of tonsillectomy (1989) Family History Grandfather Heart disease Heart attack Grandmother Age: 103 Polycystic kidney Liver disease Mother Age: 70 Polycystic kidney Polycystic liver disease Grandfather Mental health problem Cancer Brother Stroke MRSA infection Father Thyroid cancer Grandmother No problems noted. Social History household members: spouse Smoking Status: Former smoker Discharge Assessment & Plan Assessment and Plan Assessment: Appendicitis with necrotic appendix and some purulence in the peritoneum, present on admission and resolved with appendectomy and IV antibiotics. Plan of Treatment: Augmentin b.i.d. for 5 additional days. Follow up with surgery as arranged by General surgery. Warning signs are fevers, or increased abdominal pain. Discharge Plan Discharge Plan Patient Disposition: Home Discharge orders & Medications Prescriptions: New amoxicillin-pot clavulanate 875-125 mg tablet 1 tab PO Q12H Qty: 14 0RF oxycodone 5 mg tablet 5 mg PO Q8H PRN (Reason: pain) Qty: 14 0RF Continued protriptyline 10 mg tablet 30 mg PO BEDTIME verapamil 120 mg tablet 120 mg PO DAILY terbinafine HCl 250 mg Tablet 250 mg PO DAILY propranolol 10 mg Tablet 10 mg PO BID Follow up/Referrals: Vicky Callahan DO [Primary Care Provider] - Diet/Activity/Treatments Diet: Diet as Tolerated and Regular Activity: As tolerated except for NO heavy lifting or straining x 4-6 weeks. Visit Report/Discharge Packet Instructions: DI for an Appendectomy, DI for Laparoscopy, DI for Prescription Opioid Use, [facility]: Wound Care Stand Alone Forms: Patient Portal/API Discharge Data Primary Care Provider: Vicky Callahan Attending Provider: Zackary Das Admit Date/Time: 04/30/24 23:33
== END 2024-05-02 10:02 | disposition home or self-care (01) | DRG 399 ==
LOC: ED 21:38 → AC 23:36
PROVIDERS: Surgery; Admitting Provider Internal Medicine; Emergency Provider Emergency Medicine; PCP Family Medicine; Referring Provider Emergency Medicine; Visit Provider Internal Medicine
PROC: 0DTJ4ZZ Resection of Appendix, Percutaneous Endoscopic Approach (ICD-10-PCS; CPT 44970; principal; 2024-04-30 23:45)
DX: K35.32 Acute appendicitis with perforation, localized peritonitis, and gangrene, without abscess (principal); G43.909 Migraine, unspecified, not intractable, without status migrainosus; E66.811 Obesity, class 1; I10 Essential (primary) hypertension; Z90.49 Acquired absence of other specified parts of digestive tract; Z87.891 Personal history of nicotine dependence; Z68.33 Body mass index [BMI] 33.0-33.9, adult
CPT/HCPCS: 36415; 44970; 74150; 80048; 80053; 81003; 83690; 85025; 96365; 96375; 99233; 99284; 99285; G0378; J0131; J0330; J1100; J1171; J1650; J1885; J2405; J2470; J2543; J2704; J3010